=== PATIENT | female | born 1940 | race Caucasian/White ===

== ENCOUNTER 2017-09-24 14:20 | Emergency (ER) | payer MEDICARE ==
--- NOTE | 2017-09-24 16:31 | ED Physician Documentation ---
PD HPI CHEST PAIN - Stated complaint Stated Complaint: L SIDED CHEST DISCOMFORT - Chief complaint Chief Complaint: Cardiac - History obtained from History obtained from: Patient, Family - History of Present Illness Timing - onset: Other (This morning it may be 4 AM she had a left anterior chest squeezing that lasted for minutes at rest and then went away. There is no associated shortness of breath or sweats or radiation. She has been pain- free since then.) Review of Systems Constitutional: denies: Fever, Chills Cardiac: reports: Chest pain / pressure, Palpitations (Chronic status post a couple of negative Holter monitors per her.) Respiratory: denies: Dyspnea, Cough PD PAST MEDICAL HISTORY - Present Medications Home Medications: Ambulatory Orders Medication Instructions Recorded Confirmed Reds Eye Drops 09/24/17 - Allergies Allergies/Adverse Reactions: Allergies Allergy/AdvReac Type Severity Reaction Status Date / Time monosodium glutamate Allergy Anaphylaxis Verified 09/24/17 14:36 erythromycin base AdvReac Nausea Verified 09/24/17 14:35 [From Erythrocin] Tetracyclines AdvReac Nausea Verified 09/24/17 14:35 PD ED PE NORMAL - Vitals Vital signs reviewed: Yes - General General: Alert and oriented X 3, No acute distress - Cardiac Cardiac: RRR, No murmur - Respiratory Respiratory: No respiratory distress, Clear bilaterally - Abdomen Abdomen: Non tender - Extremities Extremities: No edema, No calf tenderness / cord - Neuro Neuro: Alert and oriented X 3, Normal speech Results - Vitals Vitals: Vital Signs - 24 hr 09/24/17 09/24/17 14:30 16:59 Temperature 37.5 C Heart Rate 75 64 Respiratory 15 18 Rate Blood Pressure 109/76 139/93 H O2 Saturation 97 99 Oxygen O2 Source Room air - EKG (time done) 1425 Rate: Rate (enter#) (70) Rhythm: NSR [place]: LAD Intervals: Normal [place] QRS: Normal Ischemia: Normal ST segments Computer interpretation: Agree with computer - Labs Labs: Laboratory Tests 09/24/17 09/24/17 09/24/17 16:35 16:35 16:35 WBC 7.6 RBC 4.55 Hgb 14.1 Hct 42.7 MCV 93.7 MCH 31.0 MCHC 33.1 RDW 13.0 Plt Count 247 MPV 7.6 L Neut # 4.8 Lymph # 2.0 [place] # 0.7 Eos # 0.1 Baso # 0.1 Absolute Nucleated RBC 0.00 Nucleated RBC % 0.0 Sodium 138 Potassium 4.2 Chloride 102 Carbon Dioxide 26 Anion Gap 10.0 BUN 19 Creatinine 0.9 Estimated GFR (MDRD) 61 L Glucose 93 Calcium 9.2 Total Bilirubin 0.7 AST 21 ALT 15 Alkaline Phosphatase 53 Troponin I < 0.04 Total Protein 7.6 Albumin 4.4 Globulin 3.2 Albumin/Globulin Ratio 1.4 Lipase 22 - Rads (name of study) 2v chest Radiology: EMP read contemporaneously (normal) PD MEDICAL DECISION MAKING - ED course ED course: 76-year-old woman with resolved atypical rest Pain that lasted for minutes and this was 14 hours ago without evidence of ACS. Departure - Departure Disposition: 01 Home, Self Care Clinical Impression: Chest pain Qualifiers: Chest pain type: unspecified Qualified Code(s): R07.9 - Chest pain, unspecified Condition: Good Record reviewed to determine appropriate education?: Yes Instructions: ED Chest Pain Atypical Unkn Cause Comments: Return for recurrent episodes of chest pain or other new symptoms. Follow-up with your doctor, discuss potential stress testing.
--- NOTE | 2017-09-24 16:37 | XRAY Report ---
EXAM: CHEST RADIOGRAPHY EXAM DATE: 09/24/2017 04:22 PM. CLINICAL HISTORY: Left chest pain. COMPARISON: 09/18/2009. TECHNIQUE: 2 views. FINDINGS: Lungs/Pleura: No focal opacities evident. No pleural effusion. No pneumothorax. Normal volumes. Mediastinum: Heart and mediastinal contours are unremarkable. Other: No bony abnormality identified. IMPRESSION: Normal 2-view chest radiography. [facility] Referring Provider Line: [phone] SITE ID: [id number]
[2017-09-24 16:39] LABS: BASOPHILS # (AUTO) 0.1 10^3/uL (0.0-0.1); BASOPHILS % (AUTO) 0.8 %; EOSINOPHILS # (AUTO) 0.1 10^3/uL (0.0-0.7); EOSINOPHILS % (AUTO) 0.9 %; HGB - HEMOGLOBIN 14.1 g/dL (12.0-16.0); LYMPHOCYTES % (AUTO) 26.4 %; MEAN CORPUSCULAR HGB CONC 33.1 g/dL (32.0-36.0); MEAN CORPUSCULAR VOLUME 93.7 fL (81.0-99.0); MEAN PLATELET VOLUME 7.6 fL (7.9-10.8); MONOCYTES # (AUTO) 0.7 10^3/uL (0.0-1.0); MONOCYTES % (AUTO) 8.6 %; NEUTROPHILS # (AUTO) 4.8 10^3/uL (1.5-6.6); NEUTROPHILS % (AUTO) 63.3 %; PLT - PLATELET COUNT 247 10^3/uL (130-450); RED BLOOD COUNT 4.55 10^6/uL (4.20-5.40); WHITE BLOOD COUNT 7.6 x10^3/uL (4.8-10.8)
[2017-09-24 16:52] LABS: ALBUMIN 4.4 g/dL (3.2-5.5); ALBUMIN/GLOBULIN RATIO 1.4 (1.0-2.2); BILIRUBIN,TOTAL 0.7 mg/dL (0.2-1.0); CALCIUM 9.2 mg/dL (8.5-10.3); CREATININE 0.9 mg/dL (0.4-1.0); TOTAL PROTEIN 7.6 g/dL (6.7-8.2)
[2017-09-24 17:01] VITALS: BP 139/93
== END 2017-09-24 17:27 | disposition home or self-care (01) ==
LOC: ED 14:20
DX: R07.9 Chest pain, unspecified (principal)
CPT/HCPCS: 36415; 71046; 80053; 83690; 84484; 85025; 93005; 99283; 99284

== ENCOUNTER 2017-10-01 11:51 | Emergency (ER) | payer MEDICARE ==
[2017-10-01 12:22] LABS: BASOPHILS % (AUTO) 0.3 %; EOSINOPHILS % (AUTO) 0.4 %; HGB - HEMOGLOBIN 14.6 g/dL (12.0-16.0); LYMPHOCYTES # (AUTO) 1.1 10^3/uL (1.5-3.5); LYMPHOCYTES % (AUTO) 14.2 %; MEAN CORPUSCULAR HGB CONC 34.1 g/dL (32.0-36.0); MEAN CORPUSCULAR VOLUME 93.8 fL (81.0-99.0); MEAN PLATELET VOLUME 7.8 fL (7.9-10.8); MONOCYTES # (AUTO) 0.5 10^3/uL (0.0-1.0); NEUTROPHILS # (AUTO) 6.4 10^3/uL (1.5-6.6); NEUTROPHILS % (AUTO) 79.1 %; PLT - PLATELET COUNT 235 10^3/uL (130-450); RED BLOOD COUNT 4.57 10^6/uL (4.20-5.40); RED CELL DISTRIBUTION WIDTH 13.1 % (12.0-15.0)
--- NOTE | 2017-10-01 12:27 | ED Physician Documentation ---
PD HPI CHEST PAIN - Stated complaint Stated Complaint: CHEST PRESSURE - Chief complaint Chief Complaint: Cardiac - History obtained from History obtained from: Patient, Family - History of Present Illness Timing - onset: How many weeks ago (1) Timing - onset during: Rest, Light activity Timing - duration: Seconds, Minutes Timing - details: Intermittant Pain level max: 3 Pain level now: 0 Radiation: Other (non-radiating) Improved by: Nothing Worsened by: No: Exertion, Inspiration, Eating, Movement, Palpation, Position Associated symptoms: No: Shortness of air, Diaphoresis, Nausea, Feeling faint / dizzy, General Weakness, Palpitations, Cough Similar symptoms before: Diagnosis (atypical chest pain) - Additional information Additional information: Patient is a 76-year-old female who is seen here last week for the same thing she reports intermittent episodes of fluttering in her chest, and chest tightness. These last from a few seconds to a few minutes. Does not seem to be related to activity. States has had similar issues for several years, negative Holter monitors as well as a treadmill stress test in the past. She was seen here last week, negative troponin. Normal EKG. States that she called to make an appointment with her primary care doctor for the cardiac stress test and the advice nurse told her to come back to the emergency department as she was still having symptoms. Review of Systems Constitutional: denies: Fever, Chills Ears: denies: Ear pain Nose: denies: Rhinorrhea / runny nose, Congestion Cardiac: denies: Palpitations Respiratory: denies: Cough, Wheezing GI: reports: Constipation (intermittent). denies: Abdominal Pain, Nausea, Vomiting, Diarrhea Skin: denies: Rash Musculoskeletal: denies: Neck pain, Back pain Neurologic: denies: Headache PD PAST MEDICAL HISTORY - Past Medical History Past Medical History: Yes GI: GERD - Past Surgical History Past Surgical History: Yes General: Cholecystectomy - Present Medications Home Medications: Ambulatory Orders Medication Instructions Recorded Confirmed Multivitamin [Multiple Vitamins] 1 each PO 10/01/17 - Allergies Allergies/Adverse Reactions: Allergies Allergy/AdvReac Type Severity Reaction Status Date / Time monosodium glutamate Allergy Anaphylaxis Verified 10/01/17 12:02 erythromycin base AdvReac Nausea Verified 10/01/17 12:02 [From Erythrocin] Tetracyclines AdvReac Nausea Verified 10/01/17 12:02 - Social History Does the pt smoke?: No Smoking Status: Never smoker Does the pt drink ETOH?: No Does the pt have substance abuse?: No - Immunizations Immunizations are current?: Yes - POLST Patient has POLST: No PD ED PE NORMAL - Vitals Vital signs reviewed: Yes - General General: Alert and oriented X 3, No acute distress, Well developed/nourished - HEENT HEENT: PERRL, Moist mucous membranes - Neck Neck: Supple, no meningeal sign - Cardiac Cardiac: RRR, No murmur, Strong equal pulses - Respiratory Respiratory: No respiratory distress, Clear bilaterally - Abdomen Abdomen: Soft, Non tender, Non distended - Back Back: No spinal TTP - Derm Derm: Warm and dry, No rash - Extremities Extremities: No edema, No calf tenderness / cord - Neuro Neuro: Alert and oriented X 3 - Psych Psych: Normal mood, Normal affect Results - Vitals Vitals: Vital Signs - 24 hr 10/01/17 10/01/17 11:58 13:10 Temperature 36.9 C 36.7 C Heart Rate 67 65 Respiratory 16 19 Rate Blood Pressure 140/85 H 136/75 H O2 Saturation 100 100 Oxygen O2 Source Room air - EKG (time done) 1159 Rate: Rate (enter#) (71) Rhythm: NSR [place]: Normal Intervals: Normal [place] QRS: Normal Ischemia: Normal ST segments, Other (early R wave transition) - Labs Labs: Laboratory Tests 10/01/17 10/01/17 10/01/17 12:00 12:00 12:00 WBC 8.0 RBC 4.57 Hgb 14.6 Hct 42.8 MCV 93.8 MCH 32.0 H MCHC 34.1 RDW 13.1 Plt Count 235 MPV 7.8 L Neut # 6.4 Lymph # 1.1 L [place] # 0.5 Eos # 0.0 Baso # 0.0 Absolute Nucleated RBC 0.00 Nucleated RBC % 0.1 Sodium 138 Potassium 3.6 Chloride 103 Carbon Dioxide 27 Anion Gap 8.0 BUN 16 Creatinine 0.9 Estimated GFR (MDRD) 61 L Glucose 128 H Calcium 9.0 Total Bilirubin 1.1 H AST 21 ALT 14 Alkaline Phosphatase 51 Troponin I < 0.04 Total Protein 7.3 Albumin 4.2 Globulin 3.1 Albumin/Globulin Ratio 1.4 Lipase 24 - Rads (name of study) cxr Radiology: Prelim report reviewed, EMP read contemporaneously, See rad report ( no acute disease) PD MEDICAL DECISION MAKING - ED course Complexity details: reviewed old records, reviewed results, re-evaluated patient , considered differential (No ST elevation [place], no aortic dissection, no PE, no tension pneumothorax, no aortic aneurysm), d/w patient, d/w family, d/w email production consultant (Dr. Davenport's partner ([facility] PCP) and will place cardiology referral) ED course: Patient is a 76-year-old female who presents to the emergency department with what sounds more like palpitations than chest pain. No acute findings on EKG, telemetry. Negative troponin. Discussed the case with her PCPs partner who will place a referral to cardiology. Patient and family counseled regarding signs and symptoms for which I believe and urgent re-evaluation would be necessary. Patient with good understanding of and agreement to plan and is comfortable going home at this time This document was made in part using voice recognition software. While efforts are made to proofread this document, sound alike and grammatical errors may occur. Departure - Departure Disposition: 01 Home, Self Care Clinical Impression: Chest pain Qualifiers: Chest pain type: unspecified Qualified Code(s): R07.9 - Chest pain, unspecified Condition: Good Instructions: ED Chest Pain Atypical Unkn Cause Follow-Up: Malaika Davenport MD [Primary Care Provider] - Within 1 week (for cardiac stress test) Comments: Continue your medications at home. Return if you worsen. follow up with Dr. Davenport for a cardiology referral. They put a referral in for you today. Discharge Date/Time: 10/01/17 13:16
--- NOTE | 2017-10-01 12:37 | XRAY Preliminary Report ---
Exam: XR CHEST 2 VIEW X-RAY IMPRESSION: No focal consolidation. [facility] SITE ID: [id number]
--- NOTE | 2017-10-01 12:37 | XRAY Report ---
EXAM: CHEST RADIOGRAPHY EXAM DATE: 10/01/2017 12:16 PM. CLINICAL HISTORY: Chest pressure. COMPARISON: None. TECHNIQUE: 2 views. FINDINGS: Lungs/Pleura: No focal opacities evident. No pleural effusion. No pneumothorax. Normal volumes. Mediastinum: Heart and mediastinal contours are unremarkable. Other: None. IMPRESSION: No focal consolidation. [facility] Referring Provider Line: [phone] SITE ID: [id number]
[2017-10-01 12:39] LABS: ALBUMIN 4.2 g/dL (3.2-5.5); ALBUMIN/GLOBULIN RATIO 1.4 (1.0-2.2); BILIRUBIN,TOTAL 1.1 mg/dL (0.2-1.0); CREATININE 0.9 mg/dL (0.4-1.0); TOTAL PROTEIN 7.3 g/dL (6.7-8.2)
[2017-10-01 13:12] VITALS: BP 136/75
== END 2017-10-01 13:16 | disposition home or self-care (01) ==
LOC: ED 11:51
DX: R07.9 Chest pain, unspecified (principal)
CPT/HCPCS: 36415; 71046; 80053; 83690; 84484; 85025; 93005; 99283; 99284

== ENCOUNTER 2018-08-13 09:23 | Outpatient (CLI) | payer MEDICARE | END 2018-08-13 09:24 | disposition critical access hospital (66) | LOC: EMS 09:23 | PROVIDERS: ATTEND Surgery | DX: R42 Dizziness and giddiness (principal); R11.0 Nausea | CPT/HCPCS: A0425; A0427 ==

== ENCOUNTER 2018-08-13 09:42 | Observation (INO) | payer MEDICARE ==
[2018-08-13] MEDS ORDERED: ONDANSETRON 4 MG/2 ML VIAL IVP STA (10:12)
[2018-08-13] MEDS ORDERED: SODIUM CHLORIDE 0.9% 1,000 ML IV ONE (10:12)
[2018-08-13] MEDS ORDERED: FAMOTIDINE 20 MG/2 ML VIAL IVP STA (10:13)
--- NOTE | 2018-08-13 10:18 | ED Physician Documentation ---
History of Present Illness - Stated complaint Stated Complaint: ABD PX - Chief complaint Chief Complaint: General - History obtained from History obtained from: Patient, Family - History of Present Illness Timing: How many days ago (3) - Additonal information Additional information: 77-year-old female with history of vertigo and cholecystectomy here with compla in of abdominal pain 3 days ago which disappeared and today abdominal pain recurred. Patient stated when she got out of the bathroom she felt lightheaded and dizzy and almost passed out. She also stated she was sweaty, with abdominal pain and urinary frequency and hesitancy. Patient denies any fever, chest pain or shortness of breath. Family at the bedside stated he has been having diarrhea the past 3 days. Patient denies any constipation or diarrhea. Family at the bedside also stated that patient had been forgetful the past year And she has history of vertigo attack once or twice per year. Patient stated her dizziness today did not feel like her usual vertigo.. Patient denies any recent trauma or out of the States or country travel. Review of Systems Ten Systems: 10 systems reviewed and negative Constitutional: reports: Sweats. denies: Fever, Chills, Myalgias Throat: denies: Sore throat Cardiac: denies: Chest pain / pressure Respiratory: denies: Dyspnea, Cough GI: reports: Abdominal Pain, Nausea. denies: Vomiting, Constipation, Diarrhea, Bloody / black stool : reports: Frequency, Hesitancy. denies: Dysuria Musculoskeletal: denies: Neck pain, Back pain, Extremity pain Neurologic: reports: Generalized weakness, Near syncope. denies: Focal weakness, Numbness, Difficulty speaking, Syncope, Confused, Altered mental status, Unresponsive, Headache, Head injury, LOC PD PAST MEDICAL HISTORY - Past Medical History Cardiovascular: None Respiratory: None Neuro: Fainting Endocrine/Autoimmune: None GI: GERD SENIOR DENTIST: None : Frequency HEENT: None Psych: None Musculoskeletal: None Derm: None - Past Surgical History Past Surgical History: Yes General: Cholecystectomy HEENT: Cataracts - Present Medications Home Medications: Ambulatory Orders Medication Instructions Recorded Confirmed Multivitamin [Multiple Vitamins] 1 each PO 10/01/17 - Allergies Allergies/Adverse Reactions: Allergies Allergy/AdvReac Type Severity Reaction Status Date / Time monosodium glutamate Allergy Anaphylaxis Verified 10/01/17 12:02 erythromycin base AdvReac Nausea Verified 10/01/17 12:02 [From Erythrocin] Tetracyclines AdvReac Nausea Verified 10/01/17 12:02 - Social History Does the pt smoke?: No Smoking Status: Never smoker Does the pt drink ETOH?: No Does the pt have substance abuse?: No - Immunizations Immunizations are current?: Yes - POLST Patient has POLST: No PD ED PE NORMAL - Vitals Vital signs reviewed: Yes - General General: Alert and oriented X 3, No acute distress, Well developed/nourished - HEENT HEENT: PERRL, EOMI, Moist mucous membranes, Pharynx benign - Neck Neck: Supple, no meningeal sign, No bony TTP - Cardiac Cardiac: RRR, No murmur - Respiratory Respiratory: No respiratory distress, Clear bilaterally - Abdomen Abdomen: Normal bowel sounds, Soft, Non distended, No organomegaly, Other (Mild tenderness to palpation of the epigastric, periumbilical and right lower quadrant of the abdomen. No rigidity. No rebound. No guarding.) - Back Back: No CVA TTP, No spinal TTP - Derm Derm: Normal color, Warm and dry - Extremities Extremities: No deformity, No tenderness to palpate, Normal ROM s pain, No edema - Neuro Neuro: Alert and oriented X 3, No motor deficit, Normal speech - Psych Psych: Normal mood, Normal affect Results - Vitals Vitals: Vital Signs - 24 hr 08/13/18 08/13/18 08/13/18 09:45 10:15 12:06 Temperature 36.2 C L Heart Rate 76 74 70 Heart Rate [ Sitting] Heart Rate [ Standing] Heart Rate [ Supine] Respiratory 16 17 15 Rate Blood Pressure 122/80 116/61 122/69 Blood Pressure [Sitting] Blood Pressure [Standing] Blood Pressure [Supine] O2 Saturation 98 96 97 08/13/18 12:44 Temperature Heart Rate Heart Rate [ 83 Sitting] Heart Rate [ 89 Standing] Heart Rate [ 79 Supine] Respiratory Rate Blood Pressure Blood Pressure 93/78 [Sitting] Blood Pressure 107/78 [Standing] Blood Pressure 121/74 [Supine] O2 Saturation Oxygen O2 Source Room air - EKG (time done) 0912 Rate: Rate (enter#) (72 ) Rhythm: NSR [place]: LAD Intervals: Normal [place] QRS: Normal Ischemia: Normal ST segments - Labs Labs: Laboratory Tests 08/13/18 08/13/18 08/13/18 10:20 10:20 10:20 WBC 7.0 RBC 4.13 L Hgb 13.5 Hct 38.9 MCV 94.1 MCH 32.5 H MCHC 34.6 RDW 13.1 Plt Count 198 MPV 7.8 L Neut # (Auto) 6.2 Lymph # (Auto) 0.4 L [place] # (Auto) 0.4 Eos # (Auto) 0.0 Baso # (Auto) 0.0 Absolute Nucleated RBC 0.00 Nucleated RBC % 0.0 Sodium 136 Potassium 4.0 Chloride 107 Carbon Dioxide 25 Anion Gap 4.0 L BUN 16 Creatinine 0.8 Estimated GFR (MDRD) 70 L Glucose 116 H Calcium 8.3 L Magnesium 1.8 Total Bilirubin 0.8 AST 28 ALT 17 Alkaline Phosphatase 49 Troponin I < 0.04 Total Protein 6.4 L Albumin 3.7 Globulin 2.7 Albumin/Globulin Ratio 1.4 Lipase 34 Urine Color Urine Clarity Urine pH Ur Specific [place] Urine Protein Urine Glucose (UA) Urine Ketones Urine Occult Blood Urine Nitrite Urine Bilirubin Urine Urobilinogen Ur Leukocyte Esterase Ur Microscopic Review Urine Culture Comments 08/13/18 11:20 WBC RBC Hgb Hct MCV MCH MCHC RDW Plt Count MPV Neut # (Auto) Lymph # (Auto) [place] # (Auto) Eos # (Auto) Baso # (Auto) Absolute Nucleated RBC Nucleated RBC % Sodium Potassium Chloride Carbon Dioxide Anion Gap BUN Creatinine Estimated GFR (MDRD) Glucose Calcium Magnesium Total Bilirubin AST ALT Alkaline Phosphatase Troponin I Total Protein Albumin Globulin Albumin/Globulin Ratio Lipase Urine Color YELLOW Urine Clarity CLEAR Urine pH 6.5 Ur Specific [place] 1.015 Urine Protein NEGATIVE Urine Glucose (UA) NEGATIVE Urine Ketones TRACE Urine Occult Blood TRACE-INTA Urine Nitrite NEGATIVE Urine Bilirubin NEGATIVE Urine Urobilinogen 0.2 (NORMAL) Ur Leukocyte Esterase NEGATIVE Ur Microscopic Review NOT INDICATED Urine Culture Comments NOT INDICATED PD MEDICAL DECISION MAKING - ED course Complexity details: reviewed results, re-evaluated patient, considered differential (UTI, pancreatitis, appendicitis, electrolyte imbalance, anemia, vertigo, intracranial bleed, obstruction), d/w patient, d/w family ED course: 1232 patient and family informed of test results. Patient states she is feeling a little bit better and agreed to oral fluid challenge. 1257 orthostatic vital signs was done and patient systolic blood pressure dropped from 121 to 93 from laying to sitting position, her systolic blood pressure with standing is 104. Nurse said patient was leaning backwards when she became orthostatic. However patient did not complain of any dizziness or vertigo. Inform patient and family about this problem and agreed to admission.Patient tolerating oral fluid challenge.Patient did receive 1 L of normal saline prior to orthostatic vital signs was done. 1307 Case discussed with hospitalist Dr. Hicks who will admit the patient for observation. Departure - Departure Disposition: ED Place in Observation Clinical Impression: Near syncope, Orthostatic hypotension Condition: Stable
[2018-08-13] MEDS ORDERED: IOVERSOL 320 100 ML VIAL IVP ONE ×2 (10:33→11:10)
[2018-08-13 10:39] LABS: BASOPHILS % (AUTO) 0.1 %; EOSINOPHILS % (AUTO) 0.4 %; HGB - HEMOGLOBIN 13.5 g/dL (12.0-16.0); LYMPHOCYTES # (AUTO) 0.4 10^3/uL (1.5-3.5); LYMPHOCYTES % (AUTO) 5.3 %; MEAN CORPUSCULAR HEMOGLOBIN 32.5 pg (27.0-31.0); MEAN CORPUSCULAR HGB CONC 34.6 g/dL (32.0-36.0); MEAN CORPUSCULAR VOLUME 94.1 fL (81.0-99.0); MEAN PLATELET VOLUME 7.8 fL (7.9-10.8); MONOCYTES # (AUTO) 0.4 10^3/uL (0.0-1.0); MONOCYTES % (AUTO) 5.3 %; NEUTROPHILS # (AUTO) 6.2 10^3/uL (1.5-6.6); NEUTROPHILS % (AUTO) 88.9 %; PLT - PLATELET COUNT 198 10^3/uL (130-450); RED BLOOD COUNT 4.13 10^6/uL (4.20-5.40); RED CELL DISTRIBUTION WIDTH 13.1 % (12.0-15.0)
[2018-08-13 10:40] LABS: ALBUMIN 3.7 g/dL (3.2-5.5); ALBUMIN/GLOBULIN RATIO 1.4 (1.0-2.2); BILIRUBIN,TOTAL 0.8 mg/dL (0.2-1.0); CALCIUM 8.3 mg/dL (8.5-10.3); CREATININE 0.8 mg/dL (0.4-1.0); MAGNESIUM 1.8 mg/dL (1.7-2.8); TOTAL PROTEIN 6.4 g/dL (6.7-8.2)
--- NOTE | 2018-08-13 10:49 | XRAY Report ---
Reason: chest pain Procedure Date: 08/13/2018 Accession Number: [id number] / [id number] Procedure: XR - Chest 1 View X-Ray CPT Code: 78272 FULL RESULT: EXAM: CHEST RADIOGRAPHY EXAM DATE: 08/13/2018 10:36 AM. CLINICAL HISTORY: Chest pain. COMPARISON: None. TECHNIQUE: 1 view. FINDINGS: Lungs/Pleura: No focal opacities evident. No pleural effusion. No pneumothorax. Mediastinum: Within exam limitations, the cardiomediastinal contour is normal. Other: None. IMPRESSION: No focal consolidation. [facility]
--- NOTE | 2018-08-13 11:23 | CT Report ---
Reason: syncope Procedure Date: 08/13/2018 Accession Number: [id number] / [id number] Procedure: CT - Head W/O CPT Code: FULL RESULT: EXAM: CT HEAD EXAM DATE: 08/13/2018 11:00 AM. CLINICAL HISTORY: Syncope. COMPARISON: None. TECHNIQUE: Multiaxial CT images were obtained from the foramen magnum to the vertex. Reformats: Sagittal and coronal. IV contrast: None. In accordance with CT protocol optimization, one or more of the following dose reduction techniques were utilized for this exam: automated exposure control, adjustment of mA and/or KV based on patient size, or use of iterative reconstructive technique. FINDINGS: Parenchyma: There is mild hypoattenuation in the periventricular white matter. The overall zarate-white matter differentiation is preserved. No intracranial hemorrhage demonstrated. No evidence for mass or mass-effect. Extraaxial Spaces: Mild diffuse prominence, compatible with central atrophy. No subdural or epidural collections identified. Ventricles: Normal in size and position. Basal cisterns are patent. Sinuses and Orbits: The visualized portions of the paranasal sinuses and mastoid air cells are clear. Orbits are unremarkable. Bones: No evidence of fracture or calvarial defect. Other: None. IMPRESSION: 1. No acute intracranial abnormality. 2. Suspect sequela of minimal chronic microvascular disease. [facility]
--- NOTE | 2018-08-13 11:28 | CT Report ---
Reason: epigastric, periumbilical, RLQ tenderness Procedure Date: 08/13/2018 Accession Number: [id number] / [id number] Procedure: CT - Abdomen/Pelvis W/ CPT Code: FULL RESULT: EXAM: CT ABDOMEN AND PELVIS EXAM DATE: 08/13/2018 11:07 AM. CLINICAL HISTORY: Epigastric, periumbilical, RLQ tenderness. COMPARISONS: None available. TECHNIQUE: Routine helical CT imaging was performed through the abdomen and pelvis. IV contrast: OPTI 320 100mL. Enteric contrast: No. Reconstructions: Coronal and sagittal. In accordance with CT protocol optimization, one or more of the following dose reduction techniques were utilized for this exam: automated exposure control, adjustment of mA and/or KV based on patient size, or use of iterative reconstructive technique. FINDINGS: Lung Bases: There is a 0.4 cm nodule in the right middle lobe on series 3 image 3. Minor linear atelectasis in the posterior right lung base. Liver: Normal. No masses. Gallbladder/Bile Ducts: The gallbladder is surgically absent. There is mild intrahepatic and extra hepatic bile duct dilation, most likely related to cholecystectomy. Spleen: Normal. Pancreas: Normal. Adrenal Glands: Normal. Kidneys: The bilateral collecting systems are mildly dilated, left greater than right. The ureters are not significantly dilated. Peritoneal Cavity/Bowel: No free air or fluid. No bowel obstruction. No acute inflammatory changes. The appendix is well visualized and normal, best appreciated coronal series 5 images 18 through 22. Pelvic Organs: Normal. The bladder and visualized pelvic organs are within normal limits. Vasculature: Minor atherosclerotic calcifications are noted in the aorta and iliac arteries without aneurysm. The left periuterine vessels are dilated. Bones: No acute or suspicious skeletal abnormalities. There is grade 1 anterolisthesis at L4 and L5 measuring 0.5 cm. There is L4-L5 and L5-S1 facet hypertrophy. There is degenerative disk space narrowing at L2-L3. Other: No pathologic adenopathy. IMPRESSION: 1. No acute intra-abdominal or intrapelvic abnormality. 2. Both renal collecting systems are mildly dilated, left greater than right, without overt hydronephrosis or hydroureter. 3. Normal appearance of the appendix. 4. Incidental 4 mm right middle lobe pulmonary nodule. Recommend follow-up of the described nodule(s) according to the following guidelines: Fleischner Society Recommendations 2017 MacMahon et al. Radiology 2017 Solid Nodules-Low Risk Patients: <6 mm (single or multiple) - No routine follow-up* Solid Nodules-High Risk Patients: <6 mm (single or multiple) -Optional CT at 12 months* *Nodules < 6mm do not require routine follow-up, but suspicious nodule morphology, upper lobe location, or both may warrant 12 month follow-up [facility]
[2018-08-13 11:29] LABS: BILIRUBIN,URINE NEGATIVE (NEGATIVE); CLARITY,URINE CLEAR (CLEAR); GLUCOSE, URINE (UA) NEGATIVE (NEGATIVE); KETONES,URINE (UA) TRACE mg/dL (NEGATIVE); LEUKOCYTE ESTERASE, URINE NEGATIVE (NEGATIVE); NITRITE,URINE NEGATIVE (NEGATIVE); OCCULT BLOOD,URINE TRACE-INTA (NEGATIVE); PH,URINE 6.5 PH (5.0-7.5); PROTEIN,URINE NEGATIVE (NEGATIVE); UROBILINOGEN,URINE 0.2 (NORMAL) E.U./dL (NORMAL)
[2018-08-13] MEDS ORDERED: ONDANSETRON 4 MG/2 ML VIAL IVP PRN (13:14)
[2018-08-13] MEDS ORDERED: PROMETHAZINE 25 MG/1 ML VIAL IM PRN (13:14)
[2018-08-13] MEDS ORDERED: HYDROcod/ACETAM 5/325 MG TABLET PO PRN (13:14)
[2018-08-13] MEDS ORDERED: SODIUM CHLORIDE FLUSH 0.9% 10 ML SYRINGE IVP PRN (13:14)
[2018-08-13] MEDS ORDERED: ZOLPIDEM 5 MG TABLET PO PRN (13:14)
[2018-08-13] MEDS ORDERED: PROCHLORPERAZINE 10 MG/2 ML VIAL IVP PRN (13:14)
[2018-08-13] MEDS ORDERED: IBUPROFEN 600 MG TABLET PO PRN (13:14)
[2018-08-13] MEDS ORDERED: ACETAMINOPHEN 325 MG TABLET PO PRN (13:14)
--- NOTE | 2018-08-13 14:11 | HISTORY & PHYSICAL EXAMINATION ---
Chief Complaint - Chief Complaint Chief Complaint: Nearly passed out History of Present Illness - Admitted From Admitted From:: Emergency department - History Obtained From Records Reviewed: Yes History obtained from: Patient Exam Limitations: None - History of Present Illness HPI Comment/Other: Patient is a 77-year-old female with a past medical history significant for vertigo, cataracts, mild cognitive impairment and cholecystectomy who presented to the emergency department with a chief complaint of nearly passing out. The patient states that this morning she got up from her bed to use the bathroom. She states that she was feeling fine and sat on the toilet but when she got up off the toilet she states that she noticed everything in front of her eyes go black. She states that this lasted for maybe 2 seconds and she tried to get herself to quickly get out of the bathroom to avoid passing out. She states noble t she could not avoid it and fell to the floor. She states that she did not completely pass out as she remembers the whole episode. She states that once she fell to the floor when she tried to get up she felt very nauseated. She states that she remained on the floor for several minutes. Then she states the phone rang and she was able to crawl and get herself up to get the phone. She states that once she got off the phone she again felt like she was going to pass out so she lowered herself to the floor and laid there until her came and then called 911. The patient's has been ill with a gastroenteritis and diarrhea for the last 3 days and is just getting over that. The patient states that she did have an episode of abdominal pain and nausea about 2 days ago but that resolved without any intervention. She states that she does have chronic abdominal pain and upset stomach from time to time. The patient denies any fevers or chills. She denies vomiting. She denies any diarrhea. She denies using any new medications. She denies any changes in her appetite or recent unintentional weight loss. She states that she has had several episodes in her life where she has passed out however they were always related to stress. The patient denies any chest pain, palpitations or shortness of breath. Patient denies any headache, blurred vision, runny nose, sore throat, nasal congestion, difficulty swallowing, fevers, chills, cough, orthopnea, PND, increased lower extremity swelling, constipation, urinary urgency, urinary frequency, dysuria, back pain, neck stiffness, skin changes, skin rash, polyuria, polydipsia, vertigo, night sweats or any focal neurologic deficits. On presentation to the emergency department the patient was afebrile and vital signs were within normal limits. The patient's lab work revealed a mild lymphopenia but otherwise the remainder of her labs were within normal limits. The patient's urinalysis was negative. The patient underwent imaging in the emergency department with a chest x-ray which showed no focal consolidation. The patient also underwent a CT of her head which showed no acute intracranial abnormality and a CT of her abdomen and pelvis which revealed no acute injury abdominal or intrapelvic abnormality but did show an incidental finding of a 4 mm right middle lobe pulmonary nodule. The patient underwent orthostatic vital signs after she was hydrated 1 L in the emergency department and she continued to have orthostatic hypotension as her blood pressure fell from 121 systolic down to 93 systolic from lying on the bed to standing. The patient's EKG showed a sinus rhythm without any ST elevations or ischemic changes. Given the patient's orthostatic hypotension and episode of near syncope it was felt that t he patient would benefit from an observation stay with further workup. History - Past Medical History Cardiovascular: reports: None Respiratory: reports: None Neuro: reports: Fainting Endocrine/Autoimmune: reports: None GI: reports: GERD ACCOUNTING ANALYST: reports: None : reports: Frequency HEENT: reports: None Psych: reports: None Musculoskeletal: reports: None Derm: reports: None Other Past Medical History: Vertigo - Past Surgical History General: reports: Cholecystectomy HEENT: reports: Cataracts - Family & Social History Family History: Mother: , CVA/TIA, Father: , Sister: Alive and Well, Other family: Cancer (Aunt had breast cancer) Living arrangement: At home Living Situation: With spouse/s.o. Social History Notes: The patient lives in [place], [place] with her . She has been to her for 27 years, this is both of their second marriage. The patient has 2 biological daughters. She was previously living in the [facility] and moved up here about 10 years ago with her to retire. The patient has never smoked, she does not drink alcohol and denies any illicit drug use. - POLST Patient has POLST: No POLST Status: Full Code Meds/Allgy - Home Medications Home Medications: Ambulatory Orders Medication Instructions Recorded Confirmed Multivitamin [Multiple Vitamins] 1 each PO 10/01/17 - Allergies Allergies/Adverse Reactions: Allergies Allergy/AdvReac Type Severity Reaction Status Date / Time monosodium glutamate Allergy Anaphylaxis Verified 10/01/17 12:02 erythromycin base AdvReac Nausea Verified 10/01/17 12:02 [From Erythrocin] Tetracyclines AdvReac Nausea Verified 10/01/17 12:02 Review of Systems - Other Findings Other Findings: A comprehensive review of systems was performed the pertinent positives and negatives are stated above in the HPI and the remainder of the review of systems is negative. Prior Level of Functionality: Patient is completely independent with all her activities of daily living Exam - Vital Signs Reviewed Vital Signs: Yes Vital Signs: Vital Signs x48h Temp Pulse Pulse Pulse Pulse Resp BP 08/13/18 13:00 70 18 108/86 H 08/13/18 12:44 83 89 79 08/13/18 12:06 70 15 122/69 08/13/18 10:15 74 17 116/61 08/13/18 09:45 36.2 C L 76 16 122/80 BP BP BP Pulse Ox 08/13/18 13:00 98 08/13/18 12:44 93/78 107/78 121/74 08/13/18 12:06 97 08/13/18 10:15 96 08/13/18 09:45 98 - Physical Exam General Appearance: positive: No acute distress, Alert Eyes Bilateral: positive: Normal inspection, PERRL, EOMI, No lid inflammation, Conjunctivae nml, No scleral icterus ENT: positive: ENT inspection nml, Pharynx nml, Dry mucous membranes. negative: Purulent nasal drainage, Pharyngeal erythema, Oral lesions Neck: positive: Nml inspection, Thyroid nml, No JVD, Trachea midline. negative: Thyromegaly, Lymphadenopathy (R), Lymphadenopathy (L), Stiff neck, Carotid bruit , Tracheal deviation Respiratory: positive: Chest non-tender, No respiratory distress, Breath sounds nml. negative: Wheezes, Rales, Rhonchi Cardiovascular: positive: Regular rate & rhythm, No murmur, No gallop Peripheral Pulses: positive: 2+ Abdomen: positive: Non-tender, No organomegaly, Nml bowel sounds, No distention. negative: Guarding, Rebound, Hepatomegaly Back: positive: Nml inspection. negative: CVA tenderness (R), CVA tenderness (L) Skin: positive: Color nml, No rash, Warm, Dry. negative: Diaphoresis, Pallor, Skin rash Extremities: positive: Non-tender, Full ROM, Nml appearance, No pedal edema Neurologic/Psychiatric: positive: Oriented x3, CN's nml (2-12), Motor nml, Sensation nml, Mood/affect nml Conclusion/Plan - Problem List (1) Near syncope Conclusion/Plan: The patient had an episode of near syncope at home. It is not clear if it was truly near syncope or if the patient actually had a syncopal episode. From the patient's story it does sound like she may have had a very short-lived syncopal episode. The cause of this episode is not clear. This could have been caused by dehydration or orthostatic hypotension but other causes are also possible. The patient's has been recently ill with a diarrheal illness and the patient did describe some nausea with this episode. It is possible the patient may have early infection as she does have a leukopenia as well that could have c aused some dehydration and may have led to this episode. The patient however denied any diarrhea or vomiting episodes. Given the patient's age and lack of routine follow-up with primary care physician it is felt that the patient would benefit from complete workup for the syncope. The patient's CT head was negative. The patient did have orthostatic hypotension in the emergency department and could also have autonomic dysfunction possibly due to age or could have other neurologic causes for autonomic dysfunction. Plan: Echocardiogram Telemetry monitoring Carotid Dopplers IV fluids Follow-up orthostatic vital signs Monitor closely (2) Orthostatic hypotension Conclusion/Plan: The patient did have orthostatic hypotension in the emergency department despite having received 1 L of IV fluid. The patient may still be dry or dehydrated as she does appear dry on examination and did have some nausea while she was at home. She may have a brewing infection that may be causing her to have dehydration. The patient could also have autonomic dysfunction given her age. There can be a number of different causes for autonomic dysfunction but we will monitor her orthostatic vital signs after further hydration to see if she continues to be orthostatic. Plan: We will monitor orthostatic vital signs Give IV fluids Monitor closely (3) Pulmonary nodule Conclusion/Plan: Patient was found to have a incidental 4 mm right middle lobe pulmonary nodule on CT of her abdomen and pelvis. She is a low risk patient with no history of smoking therefore a nodule less than 6 mm does not require any routine follow- up. - Lab Results Lab results reviewed: Yes Fish Bones: 08/13/18 10:20 08/13/18 10:20 Other Lab Results: Laboratory Results WBC 7.0 x10^3/uL (4.8-10.8) 08/13/18 10:20 RBC 4.13 10^6/uL (4.20-5.40) L 08/13/18 10:20 Hgb 13.5 g/dL (12.0-16.0) 08/13/18 10:20 Hct 38.9 % (37.0-47.0) 08/13/18 10:20 MCV 94.1 fL (81.0-99.0) 08/13/18 10:20 MCH 32.5 pg (27.0-31.0) H 08/13/18 10:20 MCHC 34.6 g/dL (32.0-36.0) 08/13/18 10:20 RDW 13.1 % (12.0-15.0) 08/13/18 10:20 Plt Count 198 10^3/uL (130-450) 08/13/18 10:20 MPV 7.8 fL (7.9-10.8) L 08/13/18 10:20 Neut # (Auto) 6.2 10^3/uL (1.5-6.6) 08/13/18 10:20 Lymph # (Auto) 0.4 10^3/uL (1.5-3.5) L 08/13/18 10:20 [place] # (Auto) 0.4 10^3/uL (0.0-1.0) 08/13/18 10:20 Eos # (Auto) 0.0 10^3/uL (0.0-0.7) 08/13/18 10:20 Baso # (Auto) 0.0 10^3/uL (0.0-0.1) 08/13/18 10:20 Absolute Nucleated RBC 0.00 x10^3/uL 08/13/18 10:20 Nucleated RBC % 0.0 /100WBC 08/13/18 10:20 Sodium 136 mmol/L (135-145) 08/13/18 10:20 Potassium 4.0 mmol/L (3.5-5.0) 08/13/18 10:20 Chloride 107 mmol/L (101-111) 08/13/18 10:20 Carbon Dioxide 25 mmol/L (21-32) 08/13/18 10:20 Anion Gap 4.0 (6-13) L 08/13/18 10:20 BUN 16 mg/dL (6-20) 08/13/18 10:20 Creatinine 0.8 mg/dL (0.4-1.0) 08/13/18 10:20 Estimated GFR (MDRD) 70 (>89) L 08/13/18 10:20 Glucose 116 mg/dL (70-100) H 08/13/18 10:20 Calcium 8.3 mg/dL (8.5-10.3) L 08/13/18 10:20 Magnesium 1.8 mg/dL (1.7-2.8) 08/13/18 10:20 Total Bilirubin 0.8 mg/dL (0.2-1.0) 08/13/18 10:20 AST 28 IU/L (10-42) 08/13/18 10:20 ALT 17 IU/L (10-60) 08/13/18 10:20 Alkaline Phosphatase 49 IU/L (42-121) 08/13/18 10:20 Troponin I < 0.04 ng/mL (<0.49) 08/13/18 10:20 Total Protein 6.4 g/dL (6.7-8.2) L 08/13/18 10:20 Albumin 3.7 g/dL (3.2-5.5) 08/13/18 10:20 Globulin 2.7 g/dL (2.1-4.2) 08/13/18 10:20 Albumin/Globulin Ratio 1.4 (1.0-2.2) 08/13/18 10:20 Lipase 34 U/L (22-51) 08/13/18 10:20 Urine Color YELLOW 08/13/18 11:20 Urine Clarity CLEAR (CLEAR) 08/13/18 11:20 Urine pH 6.5 PH (5.0-7.5) 08/13/18 11:20 Ur Specific [place] 1.015 (1.002-1.030) 08/13/18 11:20 Urine Protein NEGATIVE mg/dL (NEGATIVE) 08/13/18 11:20 Urine Glucose (UA) NEGATIVE mg/dL (NEGATIVE) 08/13/18 11:20 Urine Ketones TRACE mg/dL (NEGATIVE) 08/13/18 11:20 Urine Occult Blood TRACE-INTA (NEGATIVE) 08/13/18 11:20 Urine Nitrite NEGATIVE (NEGATIVE) 08/13/18 11:20 Urine Bilirubin NEGATIVE (NEGATIVE) 08/13/18 11:20 Urine Urobilinogen 0.2 (NORMAL) E.U./dL (NORMAL) 08/13/18 11:20 Ur Leukocyte Esterase NEGATIVE (NEGATIVE) 08/13/18 11:20 Ur Microscopic Review NOT INDICATED 08/13/18 11:20 Urine Culture Comments NOT INDICATED 08/13/18 11:20 - Diagnostic Imaging Results Diagnostic Imaging Results: positive: Final report reviewed Diagnostic Imaging Results Comments: CT abdomen/pelvis Impression: 1. No acute intra-abdominal or intra-pelvic abnormality 2. Both renal collecting systems are mildly dilated, left greater than right, without overt hydronephrosis or hydroureter. 3. Normal appearance of the appendix. 4. Incidental 4 mm right middle lobe pulmonary nodule Chest x-ray Impression: No focal consolidation CT head Impression: 1. No acute intracranial abnormality. 2. Suspect sequela of minimal chronic microvascular disease. - EKG Results EKG Interpreted Independently: Yes EKG Findings: No ST elevations or other ischemic changes. Sinus rhythm. Core Measures - Anticipated LOS I expect patient to be DC'd or transferred within 96 hours.: Yes - DVT/VTE - Prophylaxis VTE/DVT Prophylaxis med ordered at admit?: Yes
[2018-08-13] MEDS: SODIUM CHLORIDE 0.9% 1,000 ML IV SCH (15:41)
[2018-08-13] MEDS: SODIUM CHLORIDE FLUSH 0.9% 10 ML SYRINGE IVP SCH ×2 (17:21→23:57)
[2018-08-13] MEDS: FAMOTIDINE 20 MG TABLET PO SCH (20:46)
--- NOTE | 2018-08-13 22:43 | Ultrasound Report ---
Reason: Near syncope Procedure Date: 08/13/2018 Accession Number: [id number] / [id number] Procedure: US - Carotid Doppler Complete CPT Code: FULL RESULT: EXAM: BILATERAL CAROTID AND VERTEBRAL ARTERY DUPLEX DOPPLER ULTRASOUND: EXAM DATE: 08/13/2018 09:44 PM CLINICAL HISTORY: Near syncope. COMPARISON: None. TECHNIQUE: Grayscale imaging, color Doppler, and duplex spectral Doppler were used to evaluate the carotid and vertebral arteries bilaterally. Static images were obtained. FINDINGS: Mild smooth plaque is identified in both carotid arteries. Normal antegrade flow is present in bilateral vertebral arteries. VELOCITIES (cm/sec): Right CCA mid: PSV 61.9 cm/sec CCA dist: PSV 60.0 cm/sec ICA prox: PSV 57.5 cm/sec, EDV 22.7 cm/sec ICA mid: PSV 70.8 cm/sec, EDV 24.0 cm/sec ICA dist: PSV 75.2 cm/sec, EDV 22.1 cm/sec ECA: PSV 109.3 cm/sec Vert: PSV 62.5 cm/sec ICA/CCA: 1.2 Left CCA mid: PSV 55 cm/sec CCA dist: PSV 60.6 cm/sec ICA prox: PSV 59.4 cm/sec, EDV 12.6 cm/sec ICA mid: PSV 55.6 cm/sec, EDV 19 cm/sec ICA dist: PSV 80.2 cm/sec, EDV 27.8 cm/sec ECA: PSV 86.5 cm/sec Vert: PSV 47.4 cm/sec ICA/CCA: 1.3 ICA diameter stenosis: Right: <50% by velocity and <70% by NASCET criteria. Left: <50% by velocity and <70% by NASCET criteria. IMPRESSION: 1. Mild smooth bilateral carotid artery plaquing. 2. In the right carotid artery there are no elevated carotid artery velocities to suggest hemodynamically significant stenosis. 3. In the left carotid artery there are no elevated carotid artery velocities to suggest hemodynamically significant stenosis. 4. Normal antegrade flow is present in bilateral vertebral arteries. General Recommendations: Stenosis =50% ICA - Follow-up ultrasound 6-12 months Stenosis <50% ICA - High Risk Patient with plaque - Follow-up ultrasound 1-2 years Normal Study but High Risk Patient - Follow-up ultrasound 3-5 years Management recommendations and diagnostic criteria are based on current IAC endorsed standards in Carotid Artery Stenosis: Grayscale and Doppler Ultrasound Diagnosis. Validated velocity measurements with angiographic measurements and velocity criteria are extrapolated from diameter data as defined by the Society of Radiologists in Ultrasound Consensus Conference Radiology 2003; 229;340-346. RADIA
[2018-08-14] MEDS: SODIUM CHLORIDE 0.9% 1,000 ML IV SCH (01:32)
[2018-08-14 04:39] LABS: BASOPHILS % (AUTO) 0.4 %; EOSINOPHILS # (AUTO) 0.1 10^3/uL (0.0-0.7); HGB - HEMOGLOBIN 11.8 g/dL (12.0-16.0); LYMPHOCYTES # (AUTO) 0.7 10^3/uL (1.5-3.5); LYMPHOCYTES % (AUTO) 12.1 %; MEAN CORPUSCULAR HEMOGLOBIN 31.9 pg (27.0-31.0); MEAN CORPUSCULAR HGB CONC 33.5 g/dL (32.0-36.0); MEAN CORPUSCULAR VOLUME 95.3 fL (81.0-99.0); MEAN PLATELET VOLUME 7.4 fL (7.9-10.8); MONOCYTES # (AUTO) 0.5 10^3/uL (0.0-1.0); MONOCYTES % (AUTO) 7.5 %; NEUTROPHILS # (AUTO) 4.8 10^3/uL (1.5-6.6); PLT - PLATELET COUNT 178 10^3/uL (130-450); RED BLOOD COUNT 3.71 10^6/uL (4.20-5.40); WHITE BLOOD COUNT 6.1 x10^3/uL (4.8-10.8)
[2018-08-14 04:52] LABS: ALBUMIN 3.2 g/dL (3.2-5.5); ALBUMIN/GLOBULIN RATIO 1.4 (1.0-2.2); BILIRUBIN,TOTAL 0.6 mg/dL (0.2-1.0); CALCIUM 8.1 mg/dL (8.5-10.3); CREATININE 0.8 mg/dL (0.4-1.0); MAGNESIUM 1.8 mg/dL (1.7-2.8); PHOSPHORUS 2.8 mg/dL (2.5-4.6); TOTAL PROTEIN 5.5 g/dL (6.7-8.2)
[2018-08-14] MEDS ORDERED: MULTIVITAMIN TABLET PO SCH (08:00)
--- NOTE | 2018-08-14 08:44 | Discharge Plan ---
Discharge Plan Disposition: 01 Home, Self Care Condition: Stable Diet: Regular Activity Restrictions: No Restrictions Shower Restrictions: No Driving Restrictions: No Weight Bearing: Full Weight Additional Instructions or Follow Up instructions: You came to our emergency department because you had an episode at home where you nearly passed out when getting up off the toilet. We found that you were slightly dehydrated and that your blood pressure dropped when you go from a sitting to a standing position. You were placed in observation and given IV fluids you also underwent a number of imaging studies and lab work to determine any possible cause for your symptoms. You had a CT of your head which did not show any abnormalities including stroke. You underwent an echocardiogram of your heart which showed good heart function and normal functioning heart valves. You also underwent a carotid Doppler which showed that the arteries going up your neck and into your brain were clear without any obstructions. You did not have any further episodes while you were hospitalized and you seem to be feeling a lot better. We did find that you continue to have a drop in your blood pressure when you went from a sitting to a standing position. This means that you may have some degree of autonomic dysfunction which can occur with age. Our recommendation is that any time that you are going to go from a sitting or lying position to a standing position that you should do this very slowly. I also recommend that you continue to stay well-hydrated at all times. You can otherwise continue with your normal activity and are stable for discharge. No Smoking: If you smoke, Please STOP! Call for help. Follow-up with: Malaika Davenport MD [Primary Care Provider] -
--- NOTE | 2018-08-14 08:48 | DISCHARGE SUMMARY ---
Discharge Summary Admit Date: 08/13/18 Discharge Date: 08/14/18 Discharging Provider: Rogelio Hicks MD Primary Care Provider: Malaika Gore MD Code Status: Attempt Resuscitation Condition at Discharge: Stable Discharge Disposition: 01 Home, Self Care - DIAGNOSES Admission Diagnoses: 1. Near syncope 2. Orthostatic hypotension 3. Pulmonary nodule Discharge Diagnoses with Status of Each Condition: 1. Near syncope: Resolved 2. Orthostatic hypotension: Guarded 3. Pulmonary nodule: Stable - HPI History of Present Illness: Patient is a 77-year-old female with a past medical history significant for vertigo, cataracts, mild cognitive impairment and cholecystectomy who presented to the emergency department with a chief complaint of nearly passing out. The patient states that this morning she got up from her bed to use the bathroom. She states that she was feeling fine and sat on the toilet but when she got up off the toilet she states that she noticed everything in front of her eyes go black. She states that this lasted for maybe 2 seconds and she tried to get herself to quickly get out of the bathroom to avoid passing out. She states that she could not avoid it and fell to the floor. She states that she did not completely pass out as she remembers the whole episode. She states that once she fell to the floor when she tried to get up she felt very nauseated. She states that she remained on the floor for several minutes. Then she states the phone rang and she was able to crawl and get herself up to get the phone. She states that once she got off the phone she again felt like she was going to pass out so she lowered herself to the floor and laid there until her came and then called 911. The patient's has been ill with a gastroenteritis and diarrhea for the last 3 days and is just getting over that. The patient states that she did have an episode of abdominal pain and nausea about 2 days ago but that resolved without any intervention. She states that she does have chronic abdominal pain and upset stomach from time to time. The patient denies any fevers or chills. She denies vomiting. She denies any diarrhea. She denies using any new medications. She denies any changes in her appetite or recent unintentional weight loss. She states that she has had several episodes in her life where she has passed out however they were always related to stress. The patient denies any chest pain, palpitations or shortness of breath. Patient denies any headache, blurred vision, runny nose, sore throat, nasal congestion, difficulty swallowing, fevers, chills, cough, orthopnea, PND, increased lower extremity swelling, constipation, urinary urgency, urinary frequency, dysuria, back pain, neck stiffness, skin changes, skin rash, polyuria, polydipsia, vertigo, night sweats or any focal neurologic deficits. On presentation to the emergency department the patient was afebrile and vital signs were within normal limits. The patient's lab work revealed a mild lymphopenia but otherwise the remainder of her labs were within normal limits. The patient's urinalysis was negative. The patient underwent imaging in the emergency department with a chest x-ray which showed no focal consolidation. The patient also underwent a CT of her head which showed no acute intracranial abnormality and a CT of her abdomen and pelvis which revealed no acute injury abdominal or intrapelvic abnormality but did show an incidental finding of a 4 mm right middle lobe pulmonary nodule. The patient underwent orthostatic vital signs after she was hydrated 1 L in the emergency department and she continued to have orthostatic hypotension as her blood pressure fell from 121 systolic down to 93 systolic from lying on the bed to standing. The patient's EKG showed a sinus rhythm without any ST elevations or ischemic changes. Given the patien t's orthostatic hypotension and episode of near syncope it was felt that the patient would benefit from an observation stay with further workup. - HOSPITAL COURSE Hospital Course: The patient was placed in observation and monitored on telemetry overnight. The patient had no further episodes of syncope or presyncope. The patient had no abnormal findings on telemetry during her stay. The patient did undergo an echocardiogram which showed a normal ejection fraction and normal cardiac valves with mild diastolic dysfunction. The patient also underwent carotid Dopplers which revealed no hemodynamically significant stenosis of either carotid artery. While the patient was hospitalized she was given IV fluids and we did do a recheck of orthostatic vital signs which continued to show positive orthostasis. The patient's blood pressure went from 122 systolic down to 105 systolic going from a sitting to standing position. It appears that the patient may have some mild autonomic dysfunction causing this orthostatic hypotension. The patient does not get dizzy with standing or have near syncope when standing. The drop in blood pressure is not severe. Therefore the patient was advised to drink plenty of fluids and stay well-hydrated. She was also advised to be careful anytime she is going from a sitting to standing position and take it slow. If the patient continues to have issues with orthostatic hypotension where it becomes more severe she may benefit from treatment at that time and will need to follow-up with her primary care physician. - ALLERGIES Allergies/Adverse Reactions: Allergies Allergy/AdvReac Type Severity Reaction Status Date / Time monosodium glutamate Allergy Anaphylaxis Verified 10/01/17 12:02 erythromycin base AdvReac Nausea Verified 10/01/17 12:02 [From Erythrocin] Tetracyclines AdvReac Nausea Verified 10/01/17 12:02 - MEDICATIONS Home Medications: Ambulatory Orders Medication Instructions Recorded Confirmed Multivitamin [Multiple Vitamins] 1 each PO 10/01/17 - PHYSICAL EXAM AT DISCHARGE General Appearance: positive: No acute distress, Alert Eyes Bilateral: positive: Normal inspection, PERRL, EOMI, No lid inflammation, Conjunctivae nml, No scleral icterus ENT: positive: ENT inspection nml, Pharynx nml, No signs of dehydration. negative: Purulent nasal drainage, Pharyngeal erythema, Oral lesions Neck: positive: Nml inspection, Thyroid nml, No JVD, Trachea midline. negative: Thyromegaly, Lymphadenopathy (R), Lymphadenopathy (L), Stiff neck, Carotid bruit, Tracheal deviation Respiratory: positive: Chest non-tender, No respiratory distress, Breath sounds nml. negative: Wheezes, Rales, Rhonchi Cardiovascular: positive: Regular rate & rhythm, No murmur, No gallop Peripheral Pulses: positive: 2+ Abdomen: positive: Non-tender, No organomegaly, Nml bowel sounds, No distention. negative: Guarding, Rebound, Hepatomegaly Back: positive: Nml inspection. negative: CVA tenderness (R), CVA tenderness (L) Skin: positive: Color nml, No rash, Warm. negative: Cyanosis, Diaphoresis, Pallor Extremities: positive: Non-tender, Full ROM, Nml appearance, No pedal edema Neurologic/Psychiatric: positive: Oriented x3, CN's nml (2-12), Motor nml, Sensation nml, Mood/affect nml - LABS Result Diagrams: 08/14/18 04:30 08/14/18 04:30 Other Lab Results: Laboratory Results WBC 6.1 x10^3/uL (4.8-10.8) 08/14/18 04:30 RBC 3.71 10^6/uL (4.20-5.40) L 08/14/18 04:30 Hgb 11.8 g/dL (12.0-16.0) L 08/14/18 04:30 Hct 35.4 % (37.0-47.0) L 08/14/18 04:30 MCV 95.3 fL (81.0-99.0) 08/14/18 04:30 MCH 31.9 pg (27.0-31.0) H 08/14/18 04:30 MCHC 33.5 g/dL (32.0-36.0) 08/14/18 04:30 RDW 13.0 % (12.0-15.0) 08/14/18 04:30 Plt Count 178 10^3/uL (130-450) 08/14/18 04:30 MPV 7.4 fL (7.9-10.8) L 08/14/18 04:30 Neut # (Auto) 4.8 10^3/uL (1.5-6.6) 08/14/18 04:30 Lymph # (Auto) 0.7 10^3/uL (1.5-3.5) L 08/14/18 04:30 [place] # (Auto) 0.5 10^3/uL (0.0-1.0) 08/14/18 04:30 Eos # (Auto) 0.1 10^3/uL (0.0-0.7) 08/14/18 04:30 Baso # (Auto) 0.0 10^3/uL (0.0-0.1) 08/14/18 04:30 Absolute Nucleated RBC 0.00 x10^3/uL 08/14/18 04:30 Nucleated RBC % 0.1 /100WBC 08/14/18 04:30 Sodium 141 mmol/L (135-145) 08/14/18 04:30 Potassium 3.9 mmol/L (3.5-5.0) 08/14/18 04:30 Chloride 111 mmol/L (101-111) 08/14/18 04:30 Carbon Dioxide 25 mmol/L (21-32) 08/14/18 04:30 Anion Gap 5.0 (6-13) L 08/14/18 04:30 BUN 10 mg/dL (6-20) 08/14/18 04:30 Creatinine 0.8 mg/dL (0.4-1.0) 08/14/18 04:30 Estimated GFR (MDRD) 70 (>89) L 08/14/18 04:30 Glucose 94 mg/dL (70-100) 08/14/18 04:30 Lactic Acid 0.7 mmol/L (0.5-2.2) 08/14/18 04:30 Calcium 8.1 mg/dL (8.5-10.3) L 08/14/18 04:30 Phosphorus 2.8 mg/dL (2.5-4.6) 08/14/18 04:30 Magnesium 1.8 mg/dL (1.7-2.8) 08/14/18 04:30 Total Bilirubin 0.6 mg/dL (0.2-1.0) 08/14/18 04:30 AST 29 IU/L (10-42) 08/14/18 04:30 ALT 19 IU/L (10-60) 08/14/18 04:30 Alkaline Phosphatase 46 IU/L (42-121) 08/14/18 04:30 Troponin I < 0.04 ng/mL (<0.49) 08/13/18 10:20 Total Protein 5.5 g/dL (6.7-8.2) L 08/14/18 04:30 Albumin 3.2 g/dL (3.2-5.5) 08/14/18 04:30 Globulin 2.3 g/dL (2.1-4.2) 08/14/18 04:30 Albumin/Globulin Ratio 1.4 (1.0-2.2) 08/14/18 04:30 Lipase 34 U/L (22-51) 08/13/18 10:20 Urine Color YELLOW 08/13/18 11:20 Urine Clarity CLEAR (CLEAR) 08/13/18 11:20 Urine pH 6.5 PH (5.0-7.5) 08/13/18 11:20 Ur Specific [place] 1.015 (1.002-1.030) 08/13/18 11:20 Urine Protein NEGATIVE mg/dL (NEGATIVE) 08/13/18 11:20 Urine Glucose (UA) NEGATIVE mg/dL (NEGATIVE) 08/13/18 11:20 Urine Ketones TRACE mg/dL (NEGATIVE) 08/13/18 11:20 Urine Occult Blood TRACE-INTA (NEGATIVE) 08/13/18 11:20 Urine Nitrite NEGATIVE (NEGATIVE) 08/13/18 11:20 Urine Bilirubin NEGATIVE (NEGATIVE) 08/13/18 11:20 Urine Urobilinogen 0.2 (NORMAL) E.U./dL (NORMAL) 08/13/18 11:20 Ur Leukocyte Esterase NEGATIVE (NEGATIVE) 08/13/18 11:20 Ur Microscopic Review NOT INDICATED 08/13/18 11:20 Urine Culture Comments NOT INDICATED 08/13/18 11:20 - DIAGNOSTIC IMAGING Diagnostic Imaging Results: Final report reviewed Diagnostic Imaging Results Comments: CT abdomen/pelvis Impression: 1. No acute intra-abdominal or intra-pelvic abnormality 2. Both renal collecting systems are mildly dilated, left greater than right, without overt hydronephrosis or hydroureter. 3. Normal appearance of the appendix. 4. Incidental 4 mm right middle lobe pulmonary nodule Chest x-ray Impression: No focal consolidation CT head Impression: 1. No acute intracranial abnormality. 2. Suspect sequela of minimal chronic microvascular disease. Carotid Doppler Impression: 1. Mild smooth bilateral carotid artery plaquing. 2. In the right carotid artery there are no elevated carotid artery velocities to suggest hemodynamically significant stenosis. 3. In the left carotid artery there are no elevated carotid arteries velocities to suggest hemodynamically significant stenosis. 4. Normal anterograde flow is present in bilateral vertebral arteries. Echocardiogram Impression: The left ventricular size is normal. The left ventricular wall thickness is normal. Overall left ventricular systolic function is normal with an ejection fraction of 65-70%. Impaired relaxation consistent with grade 1 diastolic dysfunction. No regional wall motion abnormalities are seen. There is mild aortic valve sclerosis. There is no evidence of aortic stenosis. Trace amount of aortic regurgitation. No mitral stenosis. There is trace to mild mitral regurgitation. No tricuspid stenosis. Trace mild tricuspid regurgitation. Normal right ventricular systolic pressure. Pulmonic valve appears structurally normal. - FOLLOW UP Follow Up: The patient will follow up with her primary care physician as needed. - TIME SPENT Time Spent in Discharge (Minutes): 35
[2018-08-14] MEDS ORDERED: POLYETHYLENE GLYCOL 3350 17 GM PACKET PO SCH (09:00)
[2018-08-14] MEDS ORDERED: ENOXAPARIN 40 MG/0.4 ML SYRINGE SUBQ SCH (09:00)
[2018-08-14] MEDS: FAMOTIDINE 20 MG TABLET PO SCH (09:13)
[2018-08-14] MEDS: SODIUM CHLORIDE FLUSH 0.9% 10 ML SYRINGE IVP SCH (10:45)
[2018-08-14 10:48] VITALS: BP 134/72
== END 2018-08-14 11:30 | disposition home or self-care (01) ==
LOC: EDUNIT# → ED 09:42 → MS2 13:14
PROVIDERS: ADMIT Internal Medicine; ATTEND Internal Medicine
DX: R55 Syncope and collapse (principal); I95.1 Orthostatic hypotension; R91.1 Solitary pulmonary nodule; R42 Dizziness and giddiness; G31.84 Mild cognitive impairment of uncertain or unknown etiology; K21.9 Gastro-esophageal reflux disease without esophagitis
CPT/HCPCS: 36415; 70450; 71045; 74177; 80053; 81003; 83605; 83690; 83735; 84100; 84484; 85025; 93005; 93306; 93880; 96361; 96372; 96374; 96375; 96376; 99284; A9270; G0378; J1650; Q9967; 81001; 87086; 99285

== ENCOUNTER 2019-05-25 12:18 | Outpatient (CLI) | payer MEDICARE ==
--- NOTE | 2019-05-25 15:40 | Ultrasound Report ---
Reason: RIGHT OVARIAN ENLARGEMENT Procedure Date: 05/25/2019 Accession Number: [id number] / [id number] Procedure: US - Pelvic w/Transvaginal CPT Code: FULL RESULT: EXAM: PELVIC ULTRASOUND EXAM DATE: 05/25/2019 01:26 PM. CLINICAL HISTORY: Right ovarian enlargement, follow-up. COMPARISON: Abdominal pelvic CT 08/13/2018. TECHNIQUE: Realtime transabdominal pelvic scan performed to identify the uterus and adnexa and as an overview of other pelvic structures, followed by transvaginal scan to provide greater detail of the uterus and adnexa, with static image documentation. FINDINGS: Uterus: 6.5 x 2.9 x 3.6 cm, volume 35 cc. Anteverted position. Normal overall size and echotexture. Masses: 1. Definite solid masses evident. Multiple echogenic foci within the uterine body myometrium may represent calcifications. 2. Uterine body subendometrial cyst measures 7 x 7 x 3 mm. Endometrium: 1 mm. No masses or thickening. Cervix: Unremarkable. Right Ovary: 1.7 x 0.7 x 1.1 cm, volume 0.7 cc. Normal echotexture and blood flow. Left Ovary: 2.4 x 1.5 x 1.6 cm, volume 3.0 cc. Normal echotexture and blood flow. Free Fluid: Small free fluid present. Other: None. IMPRESSION: 1. Atrophic right ovary. No masses identified. Normal left ovary. 2. 7 mm subendometrial cyst. 3. Echogenic foci within the myometrium may represent calcifications. This may be associated with adenomyosis in the correct clinical setting. RADIA
== END 2019-05-25 12:19 | disposition home or self-care (01) ==
LOC: DI 12:18
DX: N83.311 Acquired atrophy of right ovary (principal); N85.8 Other specified noninflammatory disorders of uterus
CPT/HCPCS: 76830; 76856

== ENCOUNTER 2019-06-13 21:27 | Emergency (ER) | payer MEDICARE ==
--- NOTE | 2019-06-13 21:44 | ED Physician Documentation ---
PD HPI ABD PAIN - Stated complaint Stated Complaint: NAUSEA/ABD PX - History obtained from History obtained from: Patient - History of Present Illness Timing - onset: Today Timing - details: Abrupt onset Pain level now: 0 Location: LLQ Associated symptoms: Vomiting, Dizzy. No: Fever, Nausea, Diarrhea, Constipation, Dysuria, Hematuria Recently seen: Not recently seen - Additional information Additional information: This is a 78-year-old woman who has the beginnings of Lewy body dementia and is not able to provide completely sustained history who presents with complaints that she had lower abdominal pain today that started later this afternoon on the left side and would "creep" into her mid abdomen and then resolved. The symptoms would last for maybe 5 to 10 seconds and then would completely resolved. They have only occurred 3-4 times today and she has had pain like this before multiple times in the past however today it was different because she was shaking in pain and it seemed more severe than normal. She also experienced 1 of her chronic vertigo attacks today and it is not uncommon for her to get pain with that but the pain usually does not last this long. She was breaking out in sweats but did not document any fevers. She vomited on the way to the emergency department. Has not had any diarrhea. She denies dysuria or hematuria. She is status post cholecystectomy but no other abdominal surgeries in fact has a uterine prolapse and is in discussions about obtaining a pessary. She also complains of a strange pain she experienced in her head today like a quick stabbing however this is something that she is experienced multiple times in the past and has been worked up for. No one seems to know why she gets those pains. Patient does live at home with her . Review of Systems Constitutional: reports: Sweats. denies: Fever Eyes: denies: Loss of vision Ears: denies: Ear pain Nose: denies: Rhinorrhea / runny nose Throat: denies: Sore throat Cardiac: denies: Palpitations Respiratory: denies: Dyspnea, Cough GI: reports: Abdominal Pain, Vomiting. denies: Nausea, Constipation, Diarrhea : denies: Dysuria, Frequency Skin: denies: Rash Musculoskeletal: denies: Back pain Neurologic: reports: Numbness (Developing tingling on the bottom of her feet occasionally), Headache, Other (She has some beginning dementia). denies: Generalized weakness, Difficulty speaking, Syncope, Confused, Altered mental status Endocrine: reports: Other (She is not diabetic) PD PAST MEDICAL HISTORY - Past Medical History Cardiovascular: None Respiratory: None Neuro: Fainting Endocrine/Autoimmune: None GI: GERD SCIENTIFIC DATABASE CURATOR: None : Frequency HEENT: None Psych: None Musculoskeletal: None Derm: None - Past Surgical History Past Surgical History: Yes General: Cholecystectomy HEENT: Cataracts - Present Medications Home Medications: Ambulatory Orders Medication Instructions Recorded Confirmed Multivitamin [Multiple Vitamins] 1 each PO DAILY 10/01/17 08/14/18 Propylene Glycol [Systane Balance] 1 drops EACHEYE BID 08/14/18 08/14/18 Propylene Glycol [Systane Complete] 1 drops EACHEYE BID 08/14/18 08/14/18 Vit A/Vit C/Vit E/Zinc/Copper 1 each PO BID 08/14/18 08/14/18 [Preservision Areds Softgel] Polyethylene Glycol 3350 [Miralax] 17 gm PO DAILY PRN #1 bottle 06/14/19 - Allergies Allergies/Adverse Reactions: Allergies Allergy/AdvReac Type Severity Reaction Status Date / Time monosodium glutamate Allergy Anaphylaxis Verified 06/13/19 21:41 erythromycin base AdvReac Nausea Verified 06/13/19 21:41 [From Erythrocin] Tetracyclines AdvReac Nausea Verified 06/13/19 21:41 - Social History Does the pt smoke?: No Smoking Status: Never smoker Does the pt drink ETOH?: No Does the pt have substance abuse?: No - Immunizations Immunizations are current?: Yes - POLST Patient has POLST: No POLST Status: Full Code PD ED PE NORMAL - Vitals Vital signs reviewed: Yes - General General: No acute distress, Well developed/nourished - HEENT HEENT: Atraumatic, PERRL, Moist mucous membranes - Neck Neck: No adenopathy - Cardiac Cardiac: RRR, No murmur, Strong equal pulses - Respiratory Respiratory: No respiratory distress, Clear bilaterally - Abdomen Abdomen: Normal bowel sounds, Soft, Other (She has tenderness in the lower quadrants bilaterally) - Derm Derm: Normal color, Warm and dry, No rash - Extremities Extremities: No edema - Neuro Neuro: 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, No motor deficit, No sensory deficit, Normal speech, Other (She is noted to have a bilateral upper extremity tremor) - Psych Psych: Normal mood, Other (She appears mildly anxious) Results - Vitals Vitals: Vital Signs - 24 hr 06/13/19 06/13/19 06/13/19 21:39 22:02 22:43 Temperature 36.4 C L Heart Rate 71 Respiratory 16 17 16 Rate Blood Pressure 126/68 O2 Saturation 98 06/13/19 06/13/19 06/13/19 23:16 23:49 23:50 Temperature Heart Rate 71 Respiratory 16 16 Rate Blood Pressure 124/69 O2 Saturation 99 06/13/19 06/14/19 23:54 00:00 Temperature Heart Rate 71 75 Respiratory 18 16 Rate Blood Pressure 124/69 O2 Saturation 98 98 Oxygen O2 Source Room air - Labs Labs: Laboratory Tests 06/13/19 06/13/19 06/13/19 21:45 21:45 22:20 WBC 10.3 RBC 4.51 Hgb 14.3 Hct 42.6 MCV 94.5 MCH 31.7 H MCHC 33.6 RDW 13.0 Plt Count 256 MPV 9.7 Neut # (Auto) 8.7 H Lymph # (Auto) 1.0 L [place] # (Auto) 0.6 Eos # (Auto) 0.0 Baso # (Auto) 0.0 Absolute Nucleated RBC 0.00 Nucleated RBC % 0.0 Sodium 142 Potassium 4.2 Chloride 105 Carbon Dioxide 28 Anion Gap 9.0 BUN 18 Creatinine 0.9 Estimated GFR (MDRD) 61 L Glucose 135 H Calcium 9.3 Total Bilirubin 1.1 H AST 23 ALT 15 Alkaline Phosphatase 60 Total Protein 7.3 Albumin 4.1 Globulin 3.2 Albumin/Globulin Ratio 1.3 Lipase 28 Urine Color YELLOW Urine Clarity CLEAR Urine pH 5.0 Ur Specific [place] >=1.030 H Urine Protein NEGATIVE Urine Glucose (UA) NEGATIVE Urine Ketones 15 H Urine Occult Blood MODERATE H Urine Nitrite NEGATIVE Urine Bilirubin NEGATIVE Urine Urobilinogen 0.2 (NORMAL) Ur Leukocyte Esterase NEGATIVE Urine RBC 6-10 H Urine WBC 0-3 Ur Squamous Epith Cells MANY Squamous H Urine Bacteria Few Ur Microscopic Review INDICATED Urine Culture Comments NOT INDICATED - Rads (name of study) ct abd/pelvis Radiology: See rad report (Neg acute findings) PD MEDICAL DECISION MAKING - ED course Complexity details: reviewed results, re-evaluated patient, d/w patient, d/w family ED course: The CBC and CBC CMP are normal. The UA had some white blood cells but the specimen appears to be contaminated with significant squamous epithelial cells. She has a history of diverticulitis according to the . I elected to go ahead and CT the abdomen pelvis which did not show any acute findings. She does have a lot of stool and gas. She is given a dose of MiraLAX here at her request and a prescription to use at home as a laxative. Follow-up with her primary care provider for reevaluation if she continues to have pain. Departure - Departure Disposition: Home, Self Care Clinical Impression: Abdominal pain Qualifiers: Abdominal location: left lower quadrant Qualified Code(s): R10.32 - Left lower quadrant pain Condition: Good Instructions: ED Abdominal Pain Unkn Cause Follow-Up: Malaika Davenport MD [Primary Care Provider] - Prescriptions: Polyethylene Glycol 3350 [Miralax] 17 gm PO DAILY PRN #1 bottle PRN Reason: Constipation Comments: Take the MiraLAX daily as needed for constipation. Follow-up with your primary care provider for reevaluation if the pain persists.
[2019-06-13 22:05] LABS: BASOPHILS % (AUTO) 0.3 %; EOSINOPHILS % (AUTO) 0.1 %; HGB - HEMOGLOBIN 14.3 g/dL (12.0-16.0); LYMPHOCYTES % (AUTO) 9.3 %; MEAN CORPUSCULAR HEMOGLOBIN 31.7 pg (27.0-31.0); MEAN CORPUSCULAR HGB CONC 33.6 g/dL (32.0-36.0); MEAN CORPUSCULAR VOLUME 94.5 fL (81.0-99.0); MEAN PLATELET VOLUME 9.7 fL (7.9-10.8); MONOCYTES # (AUTO) 0.6 10^3/uL (0.0-1.0); MONOCYTES % (AUTO) 5.3 %; NEUTROPHILS # (AUTO) 8.7 10^3/uL (1.5-6.6); NEUTROPHILS % (AUTO) 84.6 %; PLT - PLATELET COUNT 256 10^3/uL (130-450); RED BLOOD COUNT 4.51 10^6/uL (4.20-5.40); WHITE BLOOD COUNT 10.3 x10^3/uL (4.8-10.8)
[2019-06-13 22:19] LABS: ALBUMIN 4.1 g/dL (3.2-5.5); ALBUMIN/GLOBULIN RATIO 1.3 (1.0-2.2); BILIRUBIN,TOTAL 1.1 mg/dL (0.2-1.0); CALCIUM 9.3 mg/dL (8.5-10.3); TOTAL PROTEIN 7.3 g/dL (6.7-8.2)
[2019-06-13 22:33] LABS: BILIRUBIN,URINE NEGATIVE (NEGATIVE); GLUCOSE, URINE (UA) NEGATIVE (NEGATIVE); KETONES,URINE (UA) 15 mg/dL (NEGATIVE); LEUKOCYTE ESTERASE, URINE NEGATIVE (NEGATIVE); NITRITE,URINE NEGATIVE (NEGATIVE); OCCULT BLOOD,URINE MODERATE (NEGATIVE); PROTEIN,URINE NEGATIVE (NEGATIVE); UROBILINOGEN,URINE 0.2 (NORMAL) E.U./dL (NORMAL)
[2019-06-13 22:34] LABS: CLARITY,URINE CLEAR (CLEAR)
[2019-06-13 22:39] LABS: CREATININE 0.9 mg/dL (0.4-1.0)
[2019-06-13 22:39] LABS: BACTERIA,URINE Few /HPF (None Seen); SQUAMOUS EPITHELIAL CELL,UR MANY Squamous (<= Few)
[2019-06-13] MEDS ORDERED: IOVERSOL 320 100 ML VIAL IVP ONE ×2 (23:22→23:27)
--- NOTE | 2019-06-13 23:47 | CT Report ---
Reason: LLQ abd pain Procedure Date: 06/13/2019 Accession Number: [id number] / [id number] Procedure: CT - Abdomen/Pelvis W CPT Code: FULL RESULT: EXAM: CT ABDOMEN AND PELVIS EXAM DATE: 06/13/2019 11:25 PM. CLINICAL HISTORY: LLQ abd pain. COMPARISONS: ABDOMEN/PELVIS W/ 08/13/2018 10:57 AM. TECHNIQUE: Routine helical CT imaging was performed through the abdomen and pelvis. IV contrast: OPTI 320 100ML. Enteric contrast: No. Reconstructions: Coronal and sagittal. In accordance with CT protocol optimization, one or more of the following dose reduction techniques were utilized for this exam: automated exposure control, adjustment of mA and/or KV based on patient size, or use of iterative reconstructive technique. FINDINGS: Lung Bases: The small 2 mm nodule in the right middle lobe on series 3 image 3 is unchanged from the prior study. There are no infiltrates the lung bases. Liver: Normal. No masses. Gallbladder/Bile Ducts: Resected Spleen: Normal. Pancreas: Normal. Adrenal Glands: Normal. Kidneys: Normal. No masses or hydronephrosis. Peritoneal Cavity/Bowel: Normal. No free fluid, free air or adenopathy. No masses or acute inflammatory process. The appendix is well visualized and normal. There are no definite inflammatory changes of the colon. Pelvic Organs: Normal. The bladder and visualized pelvic organs are within normal limits. Vasculature: No aneurysms or other significant abnormality. Bones: There are degenerative changes of the spine. Other: None. IMPRESSION: 1. No findings to explain clinical symptoms. Normal appendix. No evidence for cholecystitis. 2. Tiny nodule right middle lobe, stable. 3. Status post cholecystectomy. RADIA
[2019-06-14] MEDS ORDERED: POLYETHYLENE GLYCOL 3350 17 GM PACKET PO PRN (00:48)
[2019-06-14 00:59] VITALS: BP 118/72
== END 2019-06-14 01:05 | disposition home or self-care (01) ==
LOC: ED 21:27
DX: R10.32 Left lower quadrant pain (principal); R11.10 Vomiting, unspecified; Z90.49 Acquired absence of other specified parts of digestive tract
CPT/HCPCS: 36415; 74177; 80053; 81001; 83690; 85025; 99284; A9270; Q9967; 81003; 87086

== ENCOUNTER 2020-03-01 17:16 | Emergency (ER) | payer MEDICARE ==
--- NOTE | 2020-03-01 18:14 | XRAY Report ---
PROCEDURE: Hip w/Pelvis 2-3V LT INDICATIONS: trauma to hip TECHNIQUE: AP pelvis with lateral view(s) of the right hip(s). COMPARISON: None. FINDINGS: Bones: No fractures or dislocations. Pelvic ring appears intact. No suspicious bony lesions. Mild left hip degenerative change. Soft tissues: The visualized bowel gas pattern is normal. No suspicious soft tissue calcifications. IMPRESSION: Mild left hip degenerative change. No evidence acute bony abnormality of the pelvis and left hip. Reviewed by: Matthew Merino MD on 03/01/2020 6:13 PM PDT Approved by: Matthew Merino MD on 03/01/2020 6:13 PM PDT Station ID: [id number]
--- NOTE | 2020-03-01 18:41 | ED Physician Documentation ---
History of Present Illness - Stated complaint Stated Complaint: GLF - Chief complaint Chief Complaint: Ext Problem - History obtained from History obtained from: Patient, Family - History of Present Illness Timing: How many weeks ago (2) Pain level max: 3 Pain level now: 2 - Additonal information Additional information: 79-year-old female presents to the emergency department after a fall approximately 2 weeks ago. She states since that time she has had intermittent pain to her left hip. She states some days it hurts and other days it does not. Better with rest, worse with walking. No other injuries. Did not strike her head. No neck or back pain. Review of Systems Constitutional: denies: Fever, Chills Respiratory: denies: Cough Skin: denies: Rash Musculoskeletal: denies: Neck pain, Back pain Neurologic: denies: Headache PD PAST MEDICAL HISTORY - Past Medical History Cardiovascular: None Respiratory: None Neuro: Dementia, Fainting Endocrine/Autoimmune: None GI: GERD CONSULTANT DIETITIAN: None : Frequency HEENT: None Psych: None Musculoskeletal: None Derm: None - Past Surgical History Past Surgical History: Yes General: Cholecystectomy HEENT: Cataracts - Present Medications Home Medications: Ambulatory Orders Medication Instructions Recorded Confirmed Multivitamin [Multiple Vitamins] 1 each PO DAILY 10/01/17 08/14/18 Propylene Glycol [Systane Balance] 1 drops EACHEYE BID 08/14/18 08/14/18 Propylene Glycol [Systane Complete] 1 drops EACHEYE BID 08/14/18 08/14/18 Vit A/Vit C/Vit E/Zinc/Copper 1 each PO BID 08/14/18 08/14/18 [Preservision Areds Softgel] Polyethylene Glycol 3350 [Miralax] 17 gm PO DAILY PRN #1 bottle 06/14/19 - Allergies Allergies/Adverse Reactions: Allergies Allergy/AdvReac Type Severity Reaction Status Date / Time monosodium glutamate Allergy Anaphylaxis Verified 03/01/20 17:29 erythromycin base AdvReac Nausea Verified 03/01/20 17:29 [From Erythrocin] Tetracyclines AdvReac Nausea Verified 03/01/20 17:29 - Social History Does the pt smoke?: No Smoking Status: Never smoker Does the pt drink ETOH?: No Does the pt have substance abuse?: No - Immunizations Immunizations are current?: Yes - POLST Patient has POLST: No POLST Status: Full Code PD ED PE NORMAL - Vitals Vital signs reviewed: Yes - General General: Alert and oriented X 3, No acute distress, Well developed/nourished - HEENT HEENT: Atraumatic, PERRL, Moist mucous membranes - Neck Neck: Supple, no meningeal sign - Cardiac Cardiac: RRR, Strong equal pulses - Respiratory Respiratory: No respiratory distress, Clear bilaterally - Abdomen Abdomen: Soft, Non tender, Non distended - Back Back: No spinal TTP - Derm Derm: Warm and dry - Extremities Extremities: Other (Full range of motion of all major joints including bilateral shoulders, hips, knees and ankles. Minimal pain with internal and external rotation of the left hip, but the pain is mostly up in her back. Neurovascular intact.) - Neuro Neuro: Alert and oriented X 3 - Psych Psych: Normal mood, Normal affect Results - Vitals Vitals: Vital Signs - 24 hr 03/01/20 03/01/20 17:29 18:46 Temperature 36.6 C 36.2 C L Heart Rate 68 62 Respiratory 16 18 Rate Blood Pressure 127/77 125/69 O2 Saturation 99 100 Oxygen O2 Source Room air - Rads (name of study) Left hip x-ray Radiology: Prelim report reviewed, EMP read contemporaneously, See rad report (No acute bony abnormality) PD MEDICAL DECISION MAKING - ED course Complexity details: reviewed results, re-evaluated patient, considered differential, d/w patient ED course: Patient with what appears to be hip contusion/strain. No acute findings on x- ray. She is ambulating without a limp and without difficulty. We will have her take Tylenol and/or Motrin as needed for pain. Patient counseled regarding signs and symptoms for which I believe and urgent re-evaluation would be ne cessary. Patient with good understanding of and agreement to plan and is comfortable going home at this time This document was made in part using voice recognition software. While efforts are made to proofread this document, sound alike and grammatical errors may occur. Departure - Departure Disposition: 01 Home, Self Care Clinical Impression: Contusion of hip, left Qualifiers: Encounter type: initial encounter Qualified Code(s): S70.02XA - Contusion of left hip, initial encounter Condition: Good Instructions: ED Contusion Hip Follow-Up: Malaika Davenport MD [Primary Care Provider] - Within 1 week Comments: You can use Motrin or Tylenol as needed for pain at home. Return if you worsen. Continue to gently stretch the area. Your x-rays do not show any fractures today Discharge Date/Time: 03/01/20 18:50
[2020-03-01 18:47] VITALS: BP 125/69
== END 2020-03-01 18:50 | disposition home or self-care (01) ==
LOC: ED 17:16
DX: S70.02XA Contusion of left hip, initial encounter (principal); W01.0XXA Fall on same level from slipping, tripping and stumbling without subsequent striking against object, initial encounter; M54.9 Dorsalgia, unspecified; M16.12 Unilateral primary osteoarthritis, left hip; F03.90 Unspecified dementia, unspecified severity, without behavioral disturbance, psychotic disturbance, mood disturbance, and anxiety
CPT/HCPCS: 99283; 99284

== ENCOUNTER 2020-03-02 12:39 | Observation (INO) | payer MEDICARE ==
--- NOTE | 2020-03-02 12:52 | ED Physician Documentation ---
PD HPI NVD - Stated complaint Stated Complaint: NAUSEA - Chief complaint Chief Complaint: Abd Pain - History obtained from History obtained from: Patient - History of Present Illness Timing - onset: How many hours ago (2) Timing - duration: Hours (2) Timing - details: Abrupt onset (She had an abrupt onset of upper abdominal discomfort and fullness associated with nausea and vomiting about 2 hours ago. This was a an hour and a half after eating lunch at [employer]. However her ate with her and did not experience any symptoms. She is still nauseated and has repetitive), Still present Associated symptoms: Abdominal pain (upper), Loss of appetite. No: Fever, Chest pain, Hematemesis, Dizzy Contributing factors: No: Sick contact, Bad food, Travel, Recent antibiotics Similar symptoms before: Has not had sx before Recently seen: Emergency Dept (She was seen yesterday for hip pain that she has had after a fall a few weeks ago. She denies taking regular anti-inflammatories or medications for it. She is not given any medicines in the ER.) Review of Systems Constitutional: denies: Fever, Chills, Myalgias Nose: denies: Rhinorrhea / runny nose, Congestion Throat: denies: Sore throat Respiratory: denies: Cough GI: reports: Abdominal Pain, Nausea, Vomiting. denies: Abdominal Swelling, Constipation (She claims a bowel movement every 2 to 3 days regularly and did not feel particularly constipated recently.), Diarrhea, Bloody / black stool : denies: Dysuria, Frequency Neurologic: denies: Generalized weakness, Near syncope, Altered mental status, Headache PD PAST MEDICAL HISTORY - Past Medical History Cardiovascular: None Respiratory: None Neuro: Dementia, Fainting Endocrine/Autoimmune: None GI: GERD TEACHER INDUSTRIAL ARTS: None : Frequency HEENT: None Psych: None Musculoskeletal: None Derm: None - Past Surgical History Past Surgical History: Yes General: Cholecystectomy HEENT: Cataracts - Present Medications Home Medications: Ambulatory Orders Medication Instructions Recorded Confirmed Multivitamin [Multiple Vitamins] 1 each PO DAILY 10/01/17 08/14/18 Propylene Glycol [Systane Balance] 1 drops EACHEYE BID 08/14/18 08/14/18 Propylene Glycol [Systane Complete] 1 drops EACHEYE BID 08/14/18 08/14/18 Vit A/Vit C/Vit E/Zinc/Copper 1 each PO BID 08/14/18 08/14/18 [Preservision Areds Softgel] Polyethylene Glycol 3350 [Miralax] 17 gm PO DAILY PRN #1 bottle 06/14/19 - Allergies Allergies/Adverse Reactions: Allergies Allergy/AdvReac Type Severity Reaction Status Date / Time monosodium glutamate Allergy Anaphylaxis Verified 03/02/20 12:42 erythromycin base AdvReac Nausea Verified 03/02/20 12:42 [From Erythrocin] Tetracyclines AdvReac Nausea Verified 03/02/20 12:42 - Social History Does the pt smoke?: No Smoking Status: Never smoker Does the pt drink ETOH?: No Does the pt have substance abuse?: No - Immunizations Immunizations are current?: Yes - POLST Patient has POLST: No POLST Status: Full Code PD ED PE NORMAL - Vitals Vital signs reviewed: Yes - General General: Alert and oriented X 3, Well developed/nourished, Other (She appears uncomfortable and is holding an emesis bag with some dry heaving at the time.) - HEENT HEENT: PERRL, EOMI (no nystagmus), Moist mucous membranes, Pharynx benign - Neck Neck: Supple, no meningeal sign, No adenopathy - Cardiac Cardiac: RRR, No murmur - Respiratory Respiratory: Clear bilaterally - Abdomen Abdomen: Normal bowel sounds, Soft, Non distended, No organomegaly, Other (Some tenderness in the upper abdomen both left and right with localized guarding. There is no rebound tenderness. There is mild percussion tenderness in the upper abdomen only) - Female Female : Deferred - Rectal Rectal: Deferred - Back Back: No CVA TTP - Derm Derm: Normal color, Warm and dry - Neuro Neuro: Alert and oriented X 3, No motor deficit, Normal speech Results - Vitals Vitals: Vital Signs - 24 hr 03/02/20 03/02/20 03/02/20 12:42 12:46 14:46 Temperature 36.3 C L Heart Rate 70 72 61 Respiratory 18 16 16 Rate Blood Pressure 133/59 H 129/65 151/81 H O2 Saturation 97 99 99 Oxygen O2 Source Room air - Labs Labs: Laboratory Tests 03/02/20 03/02/20 03/02/20 12:57 12:57 12:57 WBC 7.3 RBC 4.16 L Hgb 13.5 Hct 39.6 MCV 95.2 MCH 32.5 H MCHC 34.1 RDW 13.2 Plt Count 222 MPV 9.6 Neut # (Auto) 3.9 Lymph # (Auto) 2.6 Holmes # (Auto) 0.7 Eos # (Auto) 0.1 Baso # (Auto) 0.0 Absolute Nucleated RBC 0.00 Nucleated RBC % 0.0 Sodium 140 Potassium 3.8 Chloride 109 Carbon Dioxide 24 Anion Gap 7.0 BUN 18 Creatinine 0.9 Estimated GFR (MDRD) 61 L Glucose 109 H Lactic Acid Calcium 9.0 Magnesium 2.4 Total Bilirubin 0.9 AST 19 ALT 12 Alkaline Phosphatase 51 Troponin I High Sens 2.4 Total Protein 6.6 L Albumin 3.7 Globulin 2.9 Albumin/Globulin Ratio 1.3 Lipase 44 Urine Color Urine Clarity Urine pH Ur Specific [place] Urine Protein Urine Glucose (UA) Urine Ketones Urine Occult Blood Urine Nitrite Urine Bilirubin Urine Urobilinogen Ur Leukocyte Esterase Ur Microscopic Review Urine Culture Comments 03/02/20 03/02/20 13:37 14:55 WBC RBC Hgb Hct MCV MCH MCHC RDW Plt Count MPV Neut # (Auto) Lymph # (Auto) Holmes # (Auto) Eos # (Auto) Baso # (Auto) Absolute Nucleated RBC Nucleated RBC % Sodium Potassium Chloride Carbon Dioxide Anion Gap BUN Creatinine Estimated GFR (MDRD) Glucose Lactic Acid 1.2 Calcium Magnesium Total Bilirubin AST ALT Alkaline Phosphatase Troponin I High Sens Total Protein Albumin Globulin Albumin/Globulin Ratio Lipase Urine Color YELLOW Urine Clarity CLEAR Urine pH 7.5 Ur Specific [place] 1.010 Urine Protein NEGATIVE Urine Glucose (UA) NEGATIVE Urine Ketones NEGATIVE Urine Occult Blood NEGATIVE Urine Nitrite NEGATIVE Urine Bilirubin NEGATIVE Urine Urobilinogen 0.2 (NORMAL) Ur Leukocyte Esterase NEGATIVE Ur Microscopic Review NOT INDICATED Urine Culture Comments NOT INDICATED - Rads (name of study) abd/pelvic CT Radiology: Prelim report reviewed (copious stool. No acute obstructive pattern nor focal finding. ), See rad report PD MEDICAL DECISION MAKING - ED course Complexity details: reviewed results (No acute obvious process other than generous amount of stool who is found on the CT scan.), re-evaluated patient (Still nauseated after couple doses of medicines but no spontaneous vomiting at this time. We will try oral challenge. Labs and CT are unremarkable.), considered differential (Consider food related from the restaurant versus mechanical causes such as bowel obstruction or gastritis. Will check labs to evaluate for potential pancreatitis. She is status post cholecystectomy so that should not be the issue. We will get labs and CT), d/w patient ED course: She did feel a bit lightheaded and perhaps some dizziness after the initial pain medicine. She does feel little worse with moving around. Still nauseated. However she did not have a vertigo component to it on the initial onset of symptoms so I think is more med related. She is having persistent nausea and worsened with attempted fluid intake. I do not see you are able to be discharged at this time. We will talk with the hospitalist Departure - Departure Disposition: ED Place in Observation Clinical Impression: Upper abdominal pain, Intractable nausea and vomiting Condition: Stable Record reviewed to determine appropriate education?: Yes
[2020-03-02] MEDS ORDERED: MORPHINE 10 MG/ML VIAL IVP STA (13:12)
[2020-03-02] MEDS ORDERED: ONDANSETRON 4 MG/2 ML VIAL IVP STA ×2 (13:12→14:28)
[2020-03-02] MEDS ORDERED: SODIUM CHLORIDE 0.9% 1,000 ML IV STA (13:12)
[2020-03-02 13:20] LABS: BASOPHILS % (AUTO) 0.5 %; EOSINOPHILS # (AUTO) 0.1 10^3/uL (0.0-0.7); HGB - HEMOGLOBIN 13.5 g/dL (12.0-16.0); LYMPHOCYTES # (AUTO) 2.6 10^3/uL (1.5-3.5); LYMPHOCYTES % (AUTO) 35.1 %; MEAN CORPUSCULAR HEMOGLOBIN 32.5 pg (27.0-31.0); MEAN CORPUSCULAR HGB CONC 34.1 g/dL (32.0-36.0); MEAN CORPUSCULAR VOLUME 95.2 fL (81.0-99.0); MEAN PLATELET VOLUME 9.6 fL (7.9-10.8); MONOCYTES # (AUTO) 0.7 10^3/uL (0.0-1.0); MONOCYTES % (AUTO) 10.2 %; NEUTROPHILS # (AUTO) 3.9 10^3/uL (1.5-6.6); NEUTROPHILS % (AUTO) 52.9 %; PLT - PLATELET COUNT 222 10^3/uL (130-450); RED BLOOD COUNT 4.16 10^6/uL (4.20-5.40); RED CELL DISTRIBUTION WIDTH 13.2 % (12.0-15.0); WHITE BLOOD COUNT 7.3 x10^3/uL (4.8-10.8)
[2020-03-02 13:46] LABS: ALBUMIN 3.7 g/dL (3.2-5.5); ALBUMIN/GLOBULIN RATIO 1.3 (1.0-2.2); BILIRUBIN,TOTAL 0.9 mg/dL (0.2-1.0); CREATININE 0.9 mg/dL (0.4-1.0); MAGNESIUM 2.4 mg/dL (1.7-2.8); TOTAL PROTEIN 6.6 g/dL (6.7-8.2)
[2020-03-02] MEDS ORDERED: IOVERSOL 320 100 ML VIAL IVP ONE ×2 (13:49→14:55)
--- NOTE | 2020-03-02 14:29 | CT Report ---
PROCEDURE: Abdomen/Pelvis W INDICATIONS: Abdominal pain, acute, nonlocalized CONTRAST: IV CONTRAST: Optiray 320 ml: 100 PO CONTRAST: *NO PO CONTRAST TECHNIQUE: After the administration of oral and intravenous contrast, 5 mm thick sections acquired from the diap hragms to the symphysis. 5 mm thick coronal and sagittal reformats were acquired. For radiation dos e reduction, the following was used: automated exposure control, adjustment of mA and/or kV accordin g to patient size. COMPARISON: 08/13/2018, 06/13/2019 FINDINGS: Image quality: Excellent. ABDOMEN: Lung bases: Lung bases are clear. Heart size is normal. Solid organs: Liver and spleen are normal in size and enhancement. Gallbladder has been removed. B iliary system is non dilated. Pancreas enhances normally. No adrenal nodules. Kidneys demonstrate normal size and enhancement, without hydronephrosis. Peritoneum and bowel: Bowel loops demonstrate normal wall thickness and caliber. No free fluid or a ir. A normal appendix can be seen. There is a moderate amount of stool seen throughout the colon. Nodes and vessels: No retroperitoneal or mesenteric adenopathy by size criteria. Aorta and inferior vena cava are normal in size. Miscellaneous: No ventral hernias. PELVIS: Genitourinary: Bladder wall thickness is normal. The uterus is atrophic. No adnexal masses are dete cted. Miscellaneous: No inguinal hernias or adenopathy. Bones: No suspicious bony lesions. No vertebral body compression fractures. S-shaped scoliotic cur vature is incidentally noted. Focal L2-L3 degenerative change is seen. Milder degenerative changes a re seen elsewhere. IMPRESSION: There is a moderate amount of stool seen within the colon. Please correlate with clinica l constipation. Normal appendix. Incidental note is made of: Cholecystectomy Focal L2-L3 degenerative change S-shaped scoliotic curvature Reviewed by: Pan Pelaez MD on 03/02/2020 1:27 PM AKDT Approved by: Pan Pelaez MD on 03/02/2020 1:27 PM AKDT Station ID: [id number]
[2020-03-02 15:16] LABS: BILIRUBIN,URINE NEGATIVE (NEGATIVE); GLUCOSE, URINE (UA) NEGATIVE (NEGATIVE); KETONES,URINE (UA) NEGATIVE (NEGATIVE); LEUKOCYTE ESTERASE, URINE NEGATIVE (NEGATIVE); NITRITE,URINE NEGATIVE (NEGATIVE); OCCULT BLOOD,URINE NEGATIVE (NEGATIVE); PH,URINE 7.5 PH (5.0-7.5); PROTEIN,URINE NEGATIVE (NEGATIVE); UROBILINOGEN,URINE 0.2 (NORMAL) E.U./dL (NORMAL)
[2020-03-02 15:22] LABS: CLARITY,URINE CLEAR (CLEAR)
[2020-03-02] MEDS ORDERED: PROMETHAZINE INJ 6.25 MG in SODIUM CHLORIDE 0.9% 50 ML IV STA (16:08)
[2020-03-02] MEDS ORDERED: ONDANSETRON 4 MG/2 ML VIAL IVP PRN (18:00)
[2020-03-02] MEDS ORDERED: D5NS W/20 MEQ KCL 1,000 ML IV SCH (19:00)
[2020-03-02] MEDS ORDERED: SODIUM CHLORIDE FLUSH 0.9% 10 ML SYRINGE IVP PRN (19:22)
[2020-03-02] MEDS ORDERED: ACETAMINOPHEN 325 MG TABLET PO PRN (19:22)
--- NOTE | 2020-03-02 19:24 | HISTORY & PHYSICAL EXAMINATION ---
Chief Complaint - Chief Complaint Chief Complaint: Abdominal pain History of Present Illness - Admitted From Admitted From:: Home - History Obtained From Records Reviewed: Yes History obtained from: Patient, ER Physician, EMR Exam Limitations: Patient has dementia and is a poor historian. - History of Present Illness HPI Comment/Other: This is a pleasant 79-year-old female with a past medical history significant for dementia who presents today complaining of abdominal pain. History is predominantly obtained to emergency department provider and ER notes as the patient is a poor historian due to her baseline dementia. She states she knows why she is here but she cannot quite explain it. She does note that she went to [employer] today and had a cheeseburger along with a mocha coffee. The ER notes state that she developed abdominal pain with no nausea but upon her arrival to emergency department, she had multiple episodes of nonbloody emesis. She underwent a CT the abdomen pelvis which was unremarkable. Her labs were also unremarkable. She was given an oral challenge but continued to vomit and so medicine was consulted for admission. The patient currently states that she has no abdominal pain, nausea, vomiting. She reports a baseline history of dementia that has been progressing. She cannot exactly recall why she is here although she knows why she is here in the back of her head. She reports no dizziness, lightheadedness, headache, fevers, chills. She currently reports no abdominal pain, nausea, vomiting. Denies any dysuria, urgency, frequency, neuro deficits. She is unable to tell me what year or month it is. She thought it was 2079 and the month was November. She states that she knows where she is but she cannot quite recall the location. She feels like she may be a little more forgetful than usual. I did attempt to call the patient's spouse, Zbigniew, to obtain further history but he did not answer the phone. I am unable to confirm the patient's goals of care given her underlying dementia and so should be made a full code for the time being until we can speak with her , Zbigniew. 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 Review of prior records reveal her mother had a stroke and she has one aunt with breast cancer. Living arrangement: At home Living Situation: With spouse/s.o. Social History Notes: She lives at home with her , Zbigniew in [place], [place]. She denies any smoking or alcohol use. - POLST Patient has POLST: No POLST Status: Full Code Meds/Allgy - Home Medications Home Medications: Ambulatory Orders Medication Instructions Recorded Confirmed Multivitamin [Multiple Vitamins] 1 each PO DAILY 10/01/17 08/14/18 Propylene Glycol [Systane Balance] 1 drops EACHEYE BID 08/14/18 08/14/18 Propylene Glycol [Systane Complete] 1 drops EACHEYE BID 08/14/18 08/14/18 Vit A/Vit C/Vit E/Zinc/Copper 1 each PO BID 08/14/18 08/14/18 [Preservision Areds Softgel] Polyethylene Glycol 3350 [Miralax] 17 gm PO DAILY PRN #1 bottle 06/14/19 - Allergies Allergies/Adverse Reactions: Allergies Allergy/AdvReac Type Severity Reaction Status Date / Time monosodium glutamate Allergy Anaphylaxis Verified 03/02/20 12:42 erythromycin base AdvReac Nausea Verified 03/02/20 12:42 [From Erythrocin] Tetracyclines AdvReac Nausea Verified 03/02/20 12:42 Review of Systems - Constitutional Constitutional: denies: Fatigue, Fever, Chills, Poor appetite, Weight loss - Cardiovascular Cariovascular: denies: Chest pain, Exertional dyspnea, Decr. exercise tolerance - Respiratory Respiratory: denies: Cough, SOB at rest, SOB with exertion - Gastrointestinal Gastrointestinal: reports: Nausea, Vomiting. denies: Abdominal pain, Constipation, Diarrhea - Genitourinary Genitourinary: denies: Dysuria, Frequency, Urgency, Hematuria - Musculoskeletal Musculoskeletal: denies: Muscle pain, Muscle weakness - Integumentary Integumentary: denies: Rash - Neurological Neurological: reports: Memory problems. denies: General weakness, Focal weakness, Headache, Dizziness, Numbness, Abnormal gait - All Other Systems All Other Systems: reports: Reviewed and negative Prior Level of Functionality: She is independent with her ADL's. Exam - Vital Signs Reviewed Vital Signs: Yes Vital Signs: Vital Signs x48h Temp Pulse Pulse Resp BP BP Pulse Ox 03/02/20 19:05 36.7 C 74 18 150/70 H 100 03/02/20 18:00 68 16 184/87 H 99 03/02/20 16:00 70 16 157/87 H 96 03/02/20 14:46 61 16 151/81 H 99 03/02/20 12:46 72 16 129/65 99 03/02/20 12:42 36.3 C L 70 18 133/59 H 97 - Physical Exam General Appearance: positive: No acute distress, Alert Eyes Bilateral: positive: Normal inspection, Conjunctivae nml ENT: positive: ENT inspection nml Neck: positive: Nml inspection Respiratory: positive: No respiratory distress. negative: Wheezes, Rales, Rhonchi Cardiovascular: positive: Regular rate & rhythm, No murmur. negative: Tachycardia, Bradycardia, Systolic murmur Abdomen: positive: No distention, Tenderness (Mild epigastric tenderness.). negative: Non-tender, Guarding, Rebound Skin: positive: No rash, Warm, Dry Extremities: positive: Full ROM, No pedal edema Neurologic/Psychiatric: positive: Disoriented to place, Disoriented to time, Other (She has no focal deficits on exam. No slurred speech or facial droop. She does have slight bilateral upper extremity tremors.). negative: Disoriented to person, Facial droop, Slurred/abnml speech Conclusion/Plan - Problem List (1) Intractable nausea and vomiting Conclusion/Plan: Suspect related to gastroenteritis or gastritis. She failed an oral challenge in the emergency department and so we will place in observation for IV fluids and antiemetics. Her CT abdomen pelvis was unremarkable. She feels like her symptoms have improved and so we will start her on a clear liquid diet. Zofran and Compazine IV as needed. Protonix IV empirically. We will hope to discharge tomorrow if she is able to tolerate a diet. (2) Dementia Conclusion/Plan: Prior review of records revealed that she has what appears to be Lewy body dementia. It is unclear if she is currently at her baseline or not. I attempted to call her , Zbigniew, to obtain further information but he did not answer the phone. Will attempt to call him again. At this time, she has no focal deficits on exam to suggest a stroke and so we will hold off on imaging. - Lab Results Lab results reviewed: Yes Juvencio Bones: 03/03/20 05:00 03/03/20 05:00 - Diagnostic Imaging Results Diagnostic Imaging Results: positive: Final report reviewed - EKG Results EKG Interpreted Independently: Yes EKG Comparison: Unchanged from prior EKG EKG Findings: EKG shows sinus rhythm without any ST segment changes. Core Measures - Anticipated LOS I expect patient to be DC'd or transferred within 96 hours.: Yes - Issues Hospital Issues and Management Plan: 79-year-old female presents with intractable nausea and vomiting. We will place in observation for antiemetics and IV fluids. - DVT/VTE - Prophylaxis VTE/DVT Device ordered at admit?: Yes VTE/DVT Prophylaxis med ordered at admit?: No Not Ordered - Medical Reason: Not indicated
[2020-03-02] MEDS: LACTATED RINGERS 1,000 ML IV SCH (20:14)
[2020-03-02] MEDS ORDERED: PROCHLORPERAZINE 10 MG/2 ML VIAL IVP PRN (20:30)
[2020-03-02] MEDS: SODIUM CHLORIDE FLUSH 0.9% 10 ML SYRINGE IVP SCH (23:28)
[2020-03-03 05:11] LABS: BASOPHILS % (AUTO) 0.3 %; EOSINOPHILS # (AUTO) 0.1 10^3/uL (0.0-0.7); EOSINOPHILS % (AUTO) 0.5 %; HGB - HEMOGLOBIN 12.9 g/dL (12.0-16.0); LYMPHOCYTES # (AUTO) 1.8 10^3/uL (1.5-3.5); LYMPHOCYTES % (AUTO) 19.7 %; MEAN CORPUSCULAR HEMOGLOBIN 31.6 pg (27.0-31.0); MEAN CORPUSCULAR HGB CONC 33.2 g/dL (32.0-36.0); MEAN CORPUSCULAR VOLUME 95.1 fL (81.0-99.0); MEAN PLATELET VOLUME 9.5 fL (7.9-10.8); MONOCYTES % (AUTO) 11.3 %; NEUTROPHILS # (AUTO) 6.3 10^3/uL (1.5-6.6); NEUTROPHILS % (AUTO) 67.9 %; PLT - PLATELET COUNT 191 10^3/uL (130-450); RED BLOOD COUNT 4.08 10^6/uL (4.20-5.40); RED CELL DISTRIBUTION WIDTH 13.1 % (12.0-15.0); WHITE BLOOD COUNT 9.2 x10^3/uL (4.8-10.8)
[2020-03-03 05:31] LABS: CREATININE 0.8 mg/dL (0.4-1.0); MAGNESIUM 1.9 mg/dL (1.7-2.8); PHOSPHORUS 2.5 mg/dL (2.5-4.6)
[2020-03-03] MEDS: LACTATED RINGERS 1,000 ML IV SCH (05:57)
[2020-03-03] MEDS: SODIUM CHLORIDE FLUSH 0.9% 10 ML SYRINGE IVP SCH (06:01)
[2020-03-03] MEDS ORDERED: PANTOPRAZOLE 40 MG VIAL IVP SCH (07:00)
[2020-03-03 08:06] VITALS: BP 133/96
--- NOTE | 2020-03-03 09:29 | Discharge Plan ---
Discharge Plan Problem Reviewed?: Yes Disposition: Home, Self Care Condition: Stable Diet: Soft (Please eat a liquid diet today and start very soft food by dinnertime or tomorrow. Advance her diet as you can tolerated to your usual diet.) Health Concerns: You were in Observation status to manage your unrelenting nausea and vomiting, you got IV fluids and medicines to help with the nausea. You are being discharged since the nausea and vomiting have resolved. Stay well-hydrated, drink plenty of fluids, nonacidic. Advance your diet as tolerated: A bland and soft diet later today and tomorrow then a non-spicy diet after that. You may resume all your usual medications. Plan of Treatment: As above. Care Goals: And symptoms and stabilization are the goals. Assessment: The written instruction plan was given to the patient and her . No Smoking: If you smoke, Please STOP! Call for help. Follow-up with: Malaika Davenport MD [Primary Care Provider] -
--- NOTE | 2020-03-03 10:20 | PHARMACY PROGRESS NOTE ---
- Best Possible Medication History Admit Date and Time: 03/02/20 4867 Processed by: Pharmacy Medication History completed: Yes Patient Interview: Pt interview ONLY source Patient states takes no prescription medications, only various OTC supplements and eye drops. As the person ultimately responsible for medication therapy, providers are able to order a medication from an existing home medication list in [facility] via the "Reconcile Routine" prior to Confirmation of that medication by support merchandiser. Such practice is discouraged except when the physician, in their clinical judgment, deems that a medical need exists for a medication without regard to previous use.
--- NOTE | 2020-03-03 11:07 | DISCHARGE SUMMARY ---
Discharge Summary Admit Date: 03/02/20 Discharge Date: 03/03/20 Discharging Provider: Dr Tiffany Middleton Primary Care Provider: Dr Malaika Davenport Code Status: Attempt Resuscitation Condition at Discharge: Stable Discharge Disposition: 01 Home, Self Care - HPI History of Present Illness: From the admission H&P of Dr Andrew Vazf: This is a pleasant 79-year-old female with a past medical history significant for dementia who presents today complaining of abdominal pain. History is predominantly obtained to emergency department provider and ER notes as the patient is a poor historian due to her baseline dementia. She states she knows why she is here but she cannot quite explain it. She does note that she went to [employer] today and had a cheeseburger along with a mocha coffee. The ER notes state that she developed abdominal pain with no nausea but upon her arrival to emergency department, she had multiple episodes of nonbloody emesis. She underwent a CT the abdomen pelvis which was unremarkable. Her labs were also unremarkable. She was given an oral challenge but continued to vomit and so medicine was consulted for admission. The patient currently states that she has no abdominal pain, nausea, vomiting. She reports a baseline history of dementia that has been progressing. She cannot exactly recall why she is here although she knows why she is here in the back of her head. She reports no dizziness, lightheadedness, headache, fevers, chills. She currently reports no abdominal pain, nausea, vomiting. Denies any dysuria, urgency, frequency, neuro deficits. She is unable to tell me what year or month it is. She thought it was 2079 and the month was November. She states that she knows where she is but she cannot quite recall the location. She feels like she may be a little more forgetful than usual. I did attempt to call the patient's spouse, Zbigniew, to obtain further history but he did not answer the phone. I am unable to confirm the patient's goals of care given her underlying dementia and so should be made a full code for the time being until we can speak with her , Zbigniew. - HOSPITAL COURSE Hospital Course: (1) Intractable nausea and vomiting Suspect related to gastroenteritis or gastritis. She failed an oral challenge in the emergency department and so she was placed in Observation for IV fluids and antiemetics, Zofran and Compazine IV as needed also Protonix IV empirically. Her CT abdomen pelvis was unremarkable. The next morning, she felt like her symptoms have improved and so she took a clear liquid diet. He tolerated this well. She was discharged home with orders to remain on a liquid diet and advanced to pured then soft as tolerated and to stay well-hydrated. (2) Dementia Prior review of records revealed that she has what appears to be Lewy body dementia. It was unclear if she was currently at her baseline or not. We attempted to call her , Zbigniew, to obtain further information but he did not answer the phone. At this time, she has no focal deficits on exam to sug gest a stroke and so no brain imaging was ordered. - ALLERGIES Allergies/Adverse Reactions: Allergies Allergy/AdvReac Type Severity Reaction Status Date / Time monosodium glutamate Allergy Anaphylaxis Verified 03/02/20 12:42 erythromycin base AdvReac Nausea Verified 03/02/20 12:42 [From Erythrocin] Tetracyclines AdvReac Nausea Verified 03/02/20 12:42 - MEDICATIONS Home Medications: Ambulatory Orders Medication Instructions Recorded Confirmed Multivitamin [Multiple Vitamins] 1 each PO DAILY 10/01/17 03/03/20 Propylene Glycol [Systane Balance] 1 drops EACHEYE BID 08/14/18 03/03/20 Propylene Glycol [Systane Complete] 1 drops EACHEYE BID 08/14/18 03/03/20 Vit A/Vit C/Vit E/Zinc/Copper 1 each PO BID 08/14/18 03/03/20 [Preservision Areds Softgel] - PHYSICAL EXAM AT DISCHARGE General Appearance: positive: No acute distress, Alert Eyes Bilateral: positive: Normal inspection, EOMI ENT: positive: ENT inspection nml, No signs of dehydration Neck: positive: Nml inspection, No JVD Respiratory: positive: No respiratory distress Cardiovascular: positive: Regular rate & rhythm Abdomen: positive: Non-tender, No distention Skin: positive: Color nml Extremities: positive: Non-tender Neurologic/Psychiatric: positive: Disoriented to place, Disoriented to time, Other (Non-focal motor exam) - LABS Result Diagrams: 03/03/20 05:00 03/03/20 05:00 - FOLLOW UP Follow Up: See PCP in routine follow-up. - TIME SPENT Time Spent in Discharge (Minutes): 20
== END 2020-03-03 11:21 | disposition home or self-care (01) ==
LOC: ED 12:39 → MS2 17:58
PROVIDERS: ADMIT Internal Medicine; ATTEND Internal Medicine
DX: R11.2 Nausea with vomiting, unspecified (principal); F03.90 Unspecified dementia, unspecified severity, without behavioral disturbance, psychotic disturbance, mood disturbance, and anxiety
CPT/HCPCS: 36415; 74177; 80048; 80053; 81003; 83605; 83690; 83735; 84100; 84484; 85025; 93005; 96361; 96365; 96375; 97161; 99284; 99285; G0378; J7040; J7120; Q9967; 81001; 87086